=== PATIENT | female | born 1945 | race Caucasian/White ===

== ENCOUNTER 2017-01-11 10:38 | Emergency (ER) | payer BC, MEDICARE ==
[2017-01-11 10:56] VITALS: BP 133/69
--- NOTE | 2017-01-11 11:27 | UC ---
Skin Complaint HPI - HPI Summary HPI Summary: Started getting itchy bumps under her chin 5 days ago, each day new bumps have cropped up on L chest, L shoulder, under R breast. Very itchy. Has not been moving or weeding, but did plant a new peony prior to rash. - History of Current Complaint Chief Complaint: UCSkin Time Seen by Provider: 01/11/17 10:53 Stated Complaint: RASH Hx Obtained From: Patient ?: No Onset/Duration: Gradual Onset, Lasting Days Skin Exposure Onset/Duration: Days Ago Timing: Constant Onset Severity: Mild Current Severity: Moderate Location: Face Character: Pruritus, Redness, Raised Aggravating: Touch Alleviating: Nothing Associated Signs & Symptoms: Positive: Rash - Allergy/Home Medications Allergies/Adverse Reactions: Allergies Allergy/AdvReac Type Severity Reaction Status Date / Time Morphine AdvReac Unknown Vomiting Verified 09/14/15 14:36 Sulfa Drugs AdvReac Unknown Unknown Verified 02/11/14 15:32 Reaction Details Review of Systems Constitutional: Negative Skin: Rash Eyes: Negative ENT: Negative Respiratory: Negative Cardiovascular: Negative Gastrointestinal: Negative Genitourinary: Negative Motor: Negative Neurovascular: Negative Musculoskeletal: Negative Neurological: Negative Psychological: Negative All Other Systems Reviewed And Are Negative: Yes PMH/Surg Hx/FS Hx/Imm Hx Cardiovascular History: Cardiac Disease, Hypertension, Myocardial Infarction Other History Of: Negative For: Anticoagulant Therapy - Surgical History Surgical History: Yes Surgery Procedure, Year, and Place: [place] [facility] [place]. [place] [facility] [place] ankle FX+repair. 1961 tonsils. dental surgeries cardiac surgeries - Family History Known Family History: Positive: Hypertension - Social History Occupation: Retired Alcohol Use: Daily Alcohol Amount: 1 glass of wine Substance Use Type: None Smoking Status (MU): Former Smoker Type: Cigarettes Amount Used/How Often: 1 or 2 cigarettes/day Have You Smoked in the Last Year: No - Immunization History Most Recent Influenza Vaccination: 05/17 Most Recent Tetanus Shot: within last 10 years Most Recent Pneumonia Vaccination: 2008 Physical Exam Triage Information Reviewed: Yes Appearance: Well-Appearing, No Pain Distress, Well-Nourished Vital Signs: Initial Vital Signs Temp 98 F 01/11/17 10:54 Pulse 75 01/11/17 10:54 Resp 20 01/11/17 10:54 BP 133/69 01/11/17 10:54 Pulse Ox 100 01/11/17 10:54 Vital Signs Reviewed: Yes Eye Exam: Normal Eyes: Positive: Conjunctiva Clear ENT: Positive: Pharynx normal. Negative: Nasal congestion, Nasal drainage, Tonsillar swelling, Tonsillar exudate Dental Exam: Normal Neck exam: Normal Neck: Positive: Supple, Nontender, No Lymphadenopathy Respiratory Exam: Normal Respiratory: Positive: Chest non-tender, Lungs clear, Normal breath sounds, No respiratory distress, No accessory muscle use Cardiovascular Exam: Normal Cardiovascular: Positive: RRR, No Murmur Musculoskeletal Exam: Normal Neurological Exam: Normal Neurological: Positive: Alert Psychological Exam: Normal Skin Exam: Other - irreg raised red bumps on R chest, under chin, under L breast , some weeping Course/Dx - Diagnoses Provider Diagnoses: contact dermatitis Discharge - Discharge Plan Condition: Stable Disposition: HOME Prescriptions: Triamcinolone 0.5% CREAM(NF) [Triamcinolone 0.5% CREAM*] 1 applic TOPICAL TID # 30 gm predniSONE TAB* [Deltasone TAB*] 40 mg PO DAILY #4 tab Patient Education Materials: Contact Dermatitis (ED) Referrals: Tri Taveras MD [Primary Care Provider] - Additional Instructions: Use the topical cream 3 times per day for up to 14 days in a row. if you do not have marked improvement within 4 days, you should take the oral medicine in addition to the cream.
== END 2017-01-11 11:25 | disposition home or self-care (01) ==
LOC: UCEAST 10:38
DX: L25.9 Unspecified contact dermatitis, unspecified cause (principal); I25.2 Old myocardial infarction; I10 Essential (primary) hypertension; Z88.5 Allergy status to narcotic agent; Z88.2 Allergy status to sulfonamides; Z87.891 Personal history of nicotine dependence
CPT/HCPCS: 99212; G0463

== ENCOUNTER 2017-08-07 12:04 | Emergency (ER) | payer BC ==
--- NOTE | 2017-08-07 13:07 | RAD ---
INDICATION: Chest pain. History of VA. History of thoracic aneurysm with endovascular stent graft COMPARISON: Chest x-ray 2015; external CTA chest August 31, 2015 TECHNIQUE: An AP portable view obtained at 1235 hours is submitted. FINDINGS: Bones/Soft Tissues: There is sternotomy. There is interval endovascular thoracic aortic stent placement. Cardiomediastinal: There is an abnormal cardiac silhouette with an abnormal thoracic aortic contour which appears more prominent. There has been interval endovascular stent graft placement. Given the changes, however, consider CT angiographic evaluation. Lungs: There are no infiltrates. Pleura: There are no pleural effusions. Other: None IMPRESSION: THORACIC ANEURYSM . THERE IS BEEN AN INCREASE IN SIZE OF THE [place] THORACIC AORTA WHICH HAS UNDERGONE INTERVAL ENDOVASCULAR STENT PLACEMENT. CONSIDER CT ANGIOGRAPHY.
[2017-08-07 13:21] LABS: INR 1.1 (0.77-1.02)
[2017-08-07 13:29] LABS: EGFR Non-African American 98.3 (>60)
[2017-08-07 13:43] LABS: Hematocrit 35 % (35-47); Hemoglobin 11.4 g/dl (12.0-16.0); Mean Corpuscular HGB Conc 33 g/dl (31-36); Mean Corpuscular Hemoglobin 25 pg (27-31); Mean Corpuscular Volume 78 fL (80-97); Red Blood Count 4.53 10^6/ul (4.0-5.4); Red Cell Distribution Width 16 % (10.5-15); White Blood Count 9.2 10^3/ul (3.5-10.8)
[2017-08-07 14:18] LABS: ABS Basophils 0 10^3/ul (0-0.2); ABS Eosinophils 0.2 10^3/ul (0-0.6); ABS Lymphocytes 1.2 10^3/ul (1.0-4.8); ABS Monocytes 0.7 10^3/ul (0-0.8); ABS Neutrophils 7.1 10^3/ul (1.5-7.7); ABS Nucleated RBC 0 10^3/ul; Eosinophil % 1.9 % (0-6); Lymphocyte % 12.8 % (25-47); Mean Platelet Volume 9 um3 (7.4-10.4); Nucleated Red Blood Cells % 0.1; Platelet Count 190 10^3/ul (150-450)
[2017-08-07] MEDS ORDERED: Iohexol 350* (CONTRAST) 500 ML MDV IV ONE (14:29)
--- NOTE | 2017-08-07 15:46 | RAD ---
INDICATION: Thoracoabdominal aneurysm. Endovascular stent repair of thoracic aorta. Tube graft placement aortic root COMPARISON: Preoperative CT examination to 2015 TECHNIQUE: Axial source images were obtained from the thoracic inlet to the symphysis pubis following administration of intravenous contrast. 98 mL Omnipaque [address] angiographic technique was utilized with and sagittal reconstructions. 3-D 5 rendered images were obtained. CHEST FINDINGS: Neck/thyroid: The visualized neck to include the thyroid appear normal. Chest wall: There are no acute abnormalities of the bony thorax or chest wall. There is sternotomy There is no supraclavicular, infraclavicular, or axillary lymphadenopathy. Lungs : There are no pulmonary parenchymal masses or infiltrates. The pulmonary interstitium appears normal. There are no endobronchial lesions. Cardiomediastinal structures: There is interval placement of a tube graft at the level of the aortic root which is now normal in caliber. There is interval placement of endovascular stent graft which extends from the tube graft to the proximal descending thoracic aorta. At the level the arch the endovascular graft measures a maximum of 3.6 cm which is similar in size to the [place] aorta. 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 At the level of the distal most extent of the endovascular stent graft the aorta measures 7.6 x 7.2 cm whereas formerly at this level the aorta measured approximately 5.9 x 5.8 cm. Below the level of the stent graft the aorta has maximum transverse dimensions of 7.5 x 7.2 cm (formerly 5.4 x 5.2 cm). At this level there is significant circumferential thrombus. The actual lumen diameter is 4.5 cm. There is no mediastinal adenopathy. The heart is increased in size. Pleura : There are no pleural-based masses or effusions. ABDOMINAL/PELVIC FINDINGS: Liver: The liver is normal in size. There are no masses on early arterial phase enhancement. There is no ductal dilatation. Gallbladder: There are no calcified gallstones. There is no evidence of wall thickening or pericholecystic fluid. Spleen: The spleen is normal in size. There are no masses. Pancreas: There is no evidence of pancreatic mass or ductal dilatation. Adrenal glands: There is no evidence of adrenal mass. Kidneys: The kidneys are normal in size and position. There are prompt nephrograms and there is prompt excretion bilaterally. There are no renal parenchymal masses. There is no evidence of nephrolithiasis. Adenopathy: There is no evidence of adenopathy by size criteria. Fluid collections: There are no free or localized fluid collections. Vessels: The fusiform aneurysmal dilatation of the abdominal aorta extends through the diaphragmatic hiatus with the vessel is very tortuous. At the hiatus the aortic diameter is approximately 3.1 x 3.5 cm. At the level the renal arteries the aorta measures 4.9 x 3.8 cm and is associated with moderate circumferential thrombus. The remainder the aorta is diffusely ectatic measuring approximately 3 cm down to level the bifurcation. These latter measurements are similar to the earlier external examination. The visceral branches arise satisfactorily with the exception of the inferior mesenteric artery which is not identified with certainty. The iliac vessels are mildly ectatic and tortuous but not aneurysmal. GI tract: Noncontrast imaging demonstrates no acute findings. Pelvic organs: The uterus and adnexa appear normal Bladder: There are no bladder masses. Abdominal and pelvic soft tissues: The extraperitoneal abdominal and pelvic soft tissues appear normal.. Osseous structures: There are no acute osseous findings. IMPRESSION: THERE IS BEEN INTERVAL CARDIOTHORACIC SURGERY WITH PLACEMENT OF A TUBE GRAFT AT THE LEVEL THE AORTIC ROOT AND THERE IS ALSO BEEN PLACEMENT OF ENDOVASCULAR STENT GRAFT IN THE PROXIMAL THORACIC AORTA DESCRIBED. THERE HAS BEEN AN OVERALL INCREASE IN THE SIZE OF THE [place] ANEURYSM WHICH HAS NOT UNDERGONE SURGICAL OR ENDOVASCULAR REPAIR AND THIS CHANGE ACCOUNTS FOR CURRENT CHEST X-RAY FINDINGS. THE SIGNIFICANCE OF THESE LATTER CHANGES MUST BE VIEWED IN THE CONTEXT OF THE CT APPEARANCE POST GRAFT AND AND ENDOVASCULAR STENT PLACEMENT. THEREFORE THIS EXAMINATION SHOULD BE CORRELATED WITH ANY MORE RECENT EXTERNAL CT EXAMINATIONS.
[2017-08-07 16:35] LABS: Urine Appearance Clear; Urine Blood Negative (Negative); Urine Color Straw; Urine Ketones Negative (Negative); Urine Protein Negative (Negative); Urine Specific Gravity 1.059 (1.010-1.030); Urine Urobilinogen Negative (Negative)
[2017-08-07 17:02] VITALS: BP 134/73
--- NOTE | 2017-08-07 17:25 | CONSULT ---
Subjective Date of Service: 08/07/17 Interval History: Patient c/o sharp pains across her chest, radiating to both arms, lasting about 1 minute and occurring 3-4 times per hour for the past 3 days. They are worse today. She pushed a heavy object about 7 days ago. No SOB, cough. She took some ranitidine and acetaminophen. She gets some chest burnign "heartburn" with the pain. Review of Systems - Measurements Intake and Output: Intake and Output Last 24 Hours 08/05/17 08/06/17 08/07/17 08/08/17 06:59 06:59 06:59 06:59 Weight 150 lb Objective Vital Signs - 8 hr 08/07/17 08/07/17 08/07/17 12:09 13:29 13:30 Temperature 99 F Pulse Rate 69 63 60 Respiratory 18 Rate Blood Pressure 158/86 129/72 (mmHg) O2 Sat by Pulse 99 96 97 Oximetry 08/07/17 08/07/17 08/07/17 14:00 14:30 16:22 Temperature Pulse Rate 62 63 Respiratory 20 20 16 Rate Blood Pressure 126/59 134/73 (mmHg) O2 Sat by Pulse 93 94 Oximetry 08/07/17 17:00 Temperature Pulse Rate 67 Respiratory 21 Rate Blood Pressure (mmHg) O2 Sat by Pulse 96 Oximetry Oxygen Devices in Use Now: None Appearance: Alert, sitting up in bed. Somewhat anxious, otherwise looks comfortable. Eyes: No Scleral Icterus Neck: NL Appearance and Movements; NL JVP, No Thyroid Enlargement, Masses Respiratory: Symmetrical Chest Expansion and Respiratory Effort, Clear to Auscultation, Clear to Percussion Cardiovascular: RRR, No Edema, - - 3-4/6 systolic murmur RSB. Abdominal: NL Sounds; No Tenderness; No Distention, No Hepatosplenomegaly, - Extremities: No Edema, No Clubbing, Cyanosis, - Skin: No Rash or Ulcers, No Nodules or Sclerosis, - Neurological: Alert and Oriented x 3, NL Sensation Result Diagrams: 08/07/17 12:50 08/07/17 12:50 Assessment/Plan - Billing Plan By Medical Problem: 1. Chest pain: This is a very complicated patient with prosthetic AV, tube graft to the aorta, endovascular stent graft to the aorta. Not clear if her pain is related to the grafts and/or her aneurysm. She would best be served by transfer to [facility] where she has been before for aortic/cardiac problems and where there are experienced thoracic sugeons available for consultation and treatment.
--- NOTE | 2017-08-07 18:14 | ED ---
Guido Mitchell Angela, scribed for Chandana Wood MD on 08/07/17 at 1248 . HPI Chest Pain - HPI Summary HPI Summary: This pt is a 71 y/o female presenting to [facility] c/o chest pain x3 days. Pt reports her pain comes in waves and radiates to bilateral arms. She rates her pain 3-4 out of 10 in severity and is described as sharp. Denies cough, SOB, nausea or vomiting. PMHx: cardiac stent, aortic aneurysms x2. Her second surgery for an aneurysm was approximately 1 year ago at [facility]. Pt is on baby aspirin. The first surgery for her aneurysm was done by Dr. Collin Canales, who is a cardiothoracic surgeon at [facility]. - History of Current Complaint Chief Complaint: EDChestPainROMI Time Seen by Provider: 08/07/17 12:24 Hx Obtained From: Patient Onset/Duration: Started Days Ago, Still Present Timing: Lasting Days Current Severity: Moderate Pain Intensity: 4 Pain Scale Used: 0-10 Numeric Chest Pain Location: Diffuse Chest Pain Radiates: No Character: Sharp/Stabbing - sharp Aggravating Factor(s): Nothing Alleviating Factor(s): Nothing Associated Signs and Symptoms: Positive: Chest Pain. Negative: Shortness of Breath, Nausea, Cough, Vomiting - Additional Pertinent History Primary Care Physician: [id number] - Allergy/Home Medications Allergies/Adverse Reactions: Allergies Allergy/AdvReac Type Severity Reaction Status Date / Time MS Morphine [Morphine] AdvReac Unknown Vomiting Verified 09/14/15 14:36 MS Sulfa Drugs [Sulfa Drugs] AdvReac Unknown Unknown Verified 02/11/14 15:32 Reaction Details Home Medications: Home Medications Aspirin EC Low Dose* [Ecotrin EC Low Dose 81 MG*] 81 mg PO DAILY 08/07/17 [ History Confirmed 08/07/17] Metoprolol Tartrate TAB* [Lopressor TAB*] 37.5 mg PO QPM 08/07/17 [History Confirmed 08/07/17] PMH/Surg Hx/FS Hx/Imm Hx Endocrine/Hematology History: Denies: Hx Anticoagulant Therapy, Hx Blood Disorders, Hx Blood Transfusions, Hx Bone Marrow Disease, Hx Diabetes, Hx Systemic Lupus Erythematosus, Hx Sickle Cell Disease, Hx Thyroid Disease, Hx Anemia, Hx Unexplained Bleeding, Other Endocrine/Hematological Disorders Cardiovascular History: Reports: 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 , Hx Angina, Hx Coronary Artery Disease, Hx Hypercholesterolemia, Hx Hypertension - on meds, Other Cardiovascular Problems/Disorders - Aortic valve replacement (pig valve) Denies: Hx Angioplasty, Hx Auto Implanted Cardiovert Defib, Hx Cardiac Arrest , Hx Cardiomegaly, Hx Congenital Heart Disease, Hx Congestive Heart Failure, Hx Deep Vein Thrombosis, Hx Embolism, Hx Hypotension, Hx Pacemaker/ICD, Hx Peripheral Vascular Disease, Hx Rheumatic Fever, Hx Syncope, Hx Valvular Heart Disease Respiratory History: Reports: Hx Seasonal Allergies - current CPAP user, Hx Sleep Apnea - current BiPAP user, Other Respiratory Problems/Disorders - sleep apnea cpap Denies: Hx Asthma, Hx Chronic Bronchitis, Hx Chronic Obstructive Pulmonary Disease (COPD), Hx Cystic Fibrosis, Hx Lung Cancer, Hx Pleural Effusion, Hx Pneumonia, Hx Pulmonary Edema, Hx Pulmonary Embolism GI History: Denies: Hx Cirrhosis, Hx Crohn's Disease, Hx Diverticulosis, Hx Gall Bladder Disease, Hx Gastroesophageal Reflux Disease, Hx Gastrointestinal Bleed, Hx Hiatal Hernia, Hx Irritable Bowel, Hx Jaundice, Hx Obstructive Bowel, Hx Ileostomy, Hx Pyloric Stenosis, Hx Ulcer, Other GI Disorders History: Denies: Hx Acute Renal Failure, Hx Benign Prostatic Hyperplasia, Hx Chronic Renal Failure, Hx Dialysis, Hx Kidney Infection, Hx Kidney Stones, Other Problems/Disorders Musculoskeletal History: Denies: Hx Arthritis, Hx Back Problems, Hx Bursitis, Hx Congenital Bone Abnormalities, Hx Fibromyalgia, Hx Gout, Hx Orthopedic Injury, Hx Osteoporosis, Hx Scoliosis, Hx Tendonitis, Other Musculoskeletal History Sensory History: Reports: Hx Contacts or Glasses, Hx Vision Problem, Hx Hearing Aid, Hx Hearing Problem Denies: Hx Cataracts, Hx Eye Injury, Hx Eye Prosthesis, Hx Glaucoma, Hx Legally Blind, Hx Macular Degeneration, Hx Deafness, Other Sensory Impairments Opthamlomology History: Reports: Hx Contacts or Glasses, Hx Vision Problem Denies: Hx Cataracts, Hx Eye Injury, Hx Eye Prosthesis, Hx Glaucoma, Hx Legally Blind, Hx Macular Degeneration, Other Sensory Impairments Neurological History: Reports: Hx Headaches, Hx Migraine Denies: Hx Dementia, Hx Developmental Delay, Hx Nerve Disease, Hx Seizures, Hx Spinal Cord Injury, Hx Transient Ischemic Attacks (TIA), Other Neuro Impairments/Disorders Psychiatric History: Reports: Hx Anxiety Denies: Hx Attention Deficit Hyperactivity Disorder, Hx Eating Disorder, Hx Depression, Hx Panic Disorder, Hx Post Traumatic Stress Disorder, Hx Inpatient Treatment, Hx Community Mental Health Tx, Hx Schizophrenia, Hx Bipolar Disorder , Hx Suicide Attempt, Hx of Violent Episodes Against Others, Hx Substance Abuse , Other Psychiatric Issues/Disorders - Surgical History Surgery Procedure, Year, and [place] [facility] [place]. [place] [facility] [place]. 1961 tonsils. dental surgeries cardiac surgeries Hx Anesthesia Reactions: No Infectious Disease History: No Infectious Disease History: Denies: Hx Clostridium Difficile, Hx Hepatitis - Hepatitis as a child, Hx Human Immunodeficiency Virus (HIV), Hx of Known/Suspected MRSA, Hx Shingles, Hx Tuberculosis, Hx Known/Suspected VRE, Hx Known/Suspected VRSA, History Other Infectious Disease, Traveled Outside the [place] in Last 30 Days - Family History Known Family History: Positive: Hypertension - Social History Alcohol Use: Daily Alcohol Amount: 1 glass of wine Substance Use Type: Reports: None Smoking Status (MU): Former Smoker Type: Cigarettes Amount Used/How Often: 1 or 2 cigarettes/day Have You Smoked in the Last Year: No Review of Systems Negative: Fever, Chills Eyes: Negative Positive: Chest Pain Negative: Shortness Of Breath, Cough Negative: Vomiting, Nausea All Other Systems Reviewed And Are Negative: Yes Physical Exam - Summary Physical Exam Summary: VITAL SIGNS: Reviewed. GENERAL: Patient is a well-developed and nourished female who is lying comfortable in the stretcher. Patient is not in any acute respiratory distress. HEAD AND FACE: No signs of trauma. No ecchymosis, hematomas or skull depressions. No sinus tenderness. EYES: PERRLA, EOMI x 2, No injected conjunctiva, no nystagmus. EARS: Hearing grossly intact. Ear canals and tympanic membranes are within normal limits. MOUTH: Oropharynx within normal limits. NECK: Supple, trachea is midline, no adenopathy, no JVD, no carotid bruit, no c- spine tenderness, neck with full ROM. CHEST: Symmetric, no tenderness at palpation LUNGS: Clear to auscultation bilaterally. No wheezing or crackles. CVS: Regular rate and rhythm, S1 and S2 present, no murmurs or gallops appreciated. ABDOMEN: Soft, non-tender. No signs of distention. No rebound no guarding, and no masses palpated. Bowel sounds are normal. EXTREMITIES: FROM in all major joints, no edema, no cyanosis or clubbing. NEURO: Alert and oriented x 3. No acute neurological deficits. Speech is normal and follows commands. SKIN: Dry and warm Triage Information Reviewed: Yes Vital Signs On Initial Exam: Initial Vitals Temp Pulse Resp BP Pulse Ox 99 F 69 18 158/86 99 08/07/17 12:09 08/07/17 12:09 08/07/17 12:09 08/07/17 12:09 08/07/17 12:09 Vital Signs Reviewed: Yes Diagnostics - Vital Signs Vital Signs Temp Pulse Resp BP Pulse Ox 08/07/17 12:09 99 F 69 18 158/86 99 - Laboratory Lab Results: Lab Results 08/07/17 08/07/17 08/07/17 Range/Units 12:50 12:50 12:50 WBC (3.5-10.8) 10^3/ul RBC (4.0-5.4) 10^6/ul Hgb (12.0-16.0) g/dl Hct (35-47) % MCV (80-97) fL MCH (27-31) pg MCHC (31-36) g/dl RDW (10.5-15) % Plt Count (150-450) 10^3/ul MPV (7.4-10.4) um3 Neut % (Auto) (38-83) % Lymph % (Auto) (25-47) % Eagle % (Auto) (1-9) % Eos % (Auto) (0-6) % Baso % (Auto) (0-2) % Absolute Neuts (auto) (1.5-7.7) 10^3/ul Absolute Lymphs (auto) (1.0-4.8) 10^3/ul Absolute Monos (auto) (0-0.8) 10^3/ul Absolute Eos (auto) (0-0.6) 10^3/ul Absolute Basos (auto) (0-0.2) 10^3/ul Absolute Nucleated RBC 10^3/ul Nucleated RBC % INR (Anticoag Therapy) 1.10 H (0.77-1.02) APTT 26.4 (26.0-36.3) seconds Sodium 137 (133-145) mmol/L Potassium 3.9 (3.5-5.0) mmol/L Chloride 104 (101-111) mmol/L Carbon Dioxide 25 (22-32) mmol/L Anion Gap 8 (2-11) mmol/L BUN 17 (6-24) mg/dL Creatinine 0.60 (0.51-0.95) mg/dL Est GFR ( Amer) 126.4 (>60) Est GFR (Non-Af Amer) 98.3 (>60) BUN/Creatinine Ratio 28.3 H (8-20) Glucose 101 H (70-100) mg/dL Calcium 9.4 (8.6-10.3) mg/dL Magnesium 2.0 (1.9-2.7) mg/dL Total Bilirubin 0.60 (0.2-1.0) mg/dL AST 18 (13-39) U/L ALT 12 (7-52) U/L Alkaline Phosphatase 89 (34-104) U/L Total Creatine Kinase 41 (10-223) U/L CK-MB (CK-2) 0.7 (0.6-6.3) ng/mL Troponin I 0.01 (<0.04) ng/mL B-Natriuretic Peptide 314 H ( - 100) pg/mL Total Protein 6.8 (6.4-8.9) g/dL Albumin 4.0 (3.2-5.2) g/dL Globulin 2.8 (2-4) g/dL Albumin/Globulin Ratio 1.4 (1-3) TSH 1.35 (0.34-5.60) mcIU/mL Urine Color Urine Appearance Urine pH (5-9) Ur Specific [place] (1.010-1.030) Urine Protein (Negative) Urine Ketones (Negative) Urine Blood (Negative) Urine Nitrate (Negative) Urine Bilirubin (Negative) Urine Urobilinogen (Negative) Ur Leukocyte Esterase (Negative) Urine Glucose (Negative) 08/07/17 08/07/17 08/07/17 Range/Units 12:50 15:29 16:21 WBC 9.2 (3.5-10.8) 10^3/ul RBC 4.53 (4.0-5.4) 10^6/ul Hgb 11.4 L (12.0-16.0) g/dl Hct 35 (35-47) % MCV 78 L (80-97) fL MCH 25 L (27-31) pg MCHC 33 (31-36) g/dl RDW 16 H (10.5-15) % Plt Count 190 (150-450) 10^3/ul MPV 9 (7.4-10.4) um3 Neut % (Auto) 77.1 (38-83) % Lymph % (Auto) 12.8 L (25-47) % Eagle % (Auto) 7.7 (1-9) % Eos % (Auto) 1.9 (0-6) % Baso % (Auto) 0.5 (0-2) % Absolute Neuts (auto) 7.1 (1.5-7.7) 10^3/ul Absolute Lymphs (auto) 1.2 (1.0-4.8) 10^3/ul Absolute Monos (auto) 0.7 (0-0.8) 10^3/ul Absolute Eos (auto) 0.2 (0-0.6) 10^3/ul Absolute Basos (auto) 0 (0-0.2) 10^3/ul Absolute Nucleated RBC 0 10^3/ul Nucleated RBC % 0.1 INR (Anticoag Therapy) (0.77-1.02) APTT (26.0-36.3) seconds Sodium (133-145) mmol/L Potassium (3.5-5.0) mmol/L Chloride (101-111) mmol/L Carbon Dioxide (22-32) mmol/L Anion Gap (2-11) mmol/L BUN (6-24) mg/dL Creatinine (0.51-0.95) mg/dL Est GFR ( Amer) (>60) Est GFR (Non-Af Amer) (>60) BUN/Creatinine Ratio (8-20) Glucose (70-100) mg/dL Calcium (8.6-10.3) mg/dL Magnesium (1.9-2.7) mg/dL Total Bilirubin (0.2-1.0) mg/dL AST (13-39) U/L ALT (7-52) U/L Alkaline Phosphatase (34-104) U/L Total Creatine Kinase (10-223) U/L CK-MB (CK-2) (0.6-6.3) ng/mL Troponin I 0.01 (<0.04) ng/mL B-Natriuretic Peptide ( - 100) pg/mL Total Protein (6.4-8.9) g/dL Albumin (3.2-5.2) g/dL Globulin (2-4) g/dL Albumin/Globulin Ratio (1-3) TSH (0.34-5.60) mcIU/mL Urine Color Straw Urine Appearance Clear Urine pH 7.0 (5-9) Ur Specific [place] 1.059 H (1.010-1.030) Urine Protein Negative (Negative) Urine Ketones Negative (Negative) Urine Blood Negative (Negative) Urine Nitrate Negative (Negative) Urine Bilirubin Negative (Negative) Urine Urobilinogen Negative (Negative) Ur Leukocyte Esterase Negative (Negative) Urine Glucose Negative (Negative) Result Diagrams: 08/07/17 12:50 08/07/17 12:50 Lab Statement: Any lab studies that have been ordered have been reviewed, and results considered in the medical decision making process. - Radiology Chest XR Xray Interpretation: Positive (See Comments) - IMPRESSION: Thoracic aneurysm. There is been an increase in size of the [place] thoracic aorta which has undergone interval endovascular stent placement. Consider CT angiography. Dr. Wood has reviewed this radiology report. Radiology Interpretation Completed By: Radiologist - CT CT chest/abdomen/pelvis CT Interpretation: Positive (See Comments) - IMPRESSION: THERE IS BEEN INTERVAL CARDIOTHORACIC SURGERY WITH PLACEMENT OF A TUBE GRAFT AT THE LEVEL THE AORTIC ROOT AND THERE IS ALSO BEEN PLACEMENT OF ENDOVASCULAR STENT GRAFT IN THE PROXIMAL THORACIC AORTA DESCRIBED. THERE HAS BEEN AN OVERALL INCREASE IN THE SIZE OF THE CONFEDERATED [place] ANEURYSM WHICH HAS NOT UNDERGONE SURGICAL OR ENDOVASCULAR REPAIR AND THIS CHANGE ACCOUNTS FOR CURRENT CHEST X-RAY FINDINGS. THE SIGNIFICANCE OF THESE LATTER CHANGES MUST BE VIEWED IN THE CONTEXT OF THE CT APPEARANCE POST GRAFT AND ENDOVASCULAR STENT PLACEMENT. THEREFORE THIS EXAMINATION SHOULD BE CORRELATED WITH ANY MORE RECENT EXTERNAL CT EXAMINATIONS. Dr. Wood has reviewed this radiology report. CT Interpretation Completed By: Radiologist - EKG 12:13 Cardiac Rate: NL EKG Rhythm: Sinus Rhythm - at 65 bpm EKG Interpretation: T wave inversion in V1, V2. ST depressionin V4-V6. EKG Comparison: Other - different from prior EKG on 10/19/15. Re-Evaluation - Re-Evaluation First Eval Re-Evaluation Time: 16:03 Comment: I reviewed the labs, XR and CTA results with the pt. I discussed the plan to admit with the pt. Second Eval Re-Evaluation Time: 17:10 Comment: Dr. Han does not feel comfortable admitting the pt because the pain may be secondary to aortic in origin. He recommends for the pt to be transferred to [facility] for cardiothoracic surgery, which is where the pt' s surgeon, Dr. Collin Canales, is located. Chest Pain Course/Dx - Course Assessment/Plan: Test results without any significant abnormalities, hemoglobin of 11.4, BNP of 314. Urinalysis is negative for UTI. Chest XR: Thoracic aneurysm. There is been an increase in size of the [place] thoracic aorta which has undergone interval endovascular stent placement. Consider CT angiography. Chest/abdomen/pelvis CTA shows THERE IS BEEN INTERVAL CARDIOTHORACIC SURGERY WITH PLACEMENT OF A TUBE GRAFT AT THE LEVEL THE AORTIC ROOT AND THERE IS ALSO BEEN PLACEMENT OF ENDOVASCULAR STENT GRAFT IN THE PROXIMAL THORACIC AORTA DESCRIBED. THERE HAS BEEN AN OVERALL INCREASE IN THE SIZE OF THE CONF[place] ANEURYSM WHICH HAS NOT UNDERGONE SURGICAL OR ENDOVASCULAR REPAIR AND THIS CHANGE ACCOUNTS FOR CURRENT CHEST X-RAY FINDINGS. THE SIGNIFICANCE OF THESE LATTER CHANGES MUST BE VIEWED IN THE CONTEXT OF THE CT APPEARANCE POST GRAFT AND ENDOVASCULAR STENT PLACEMENT. THEREFORE THIS EXAMINATION SHOULD BE CORRELATED WITH ANY MORE RECENT EXTERNAL CT EXAMINATIONS. In the ED course the pt has been stable with no significant pain. However, the EKG is abnormal and has flipped T waves and ST depression in V4-V6. I discussed the case with Dr. Han, hospitalist, who did a consult on the pt. He recommends the pt to be transferred to a hospital that has a cardiothoracic surgeon for an increased size of [place] aneurysm which has not undergone surgical or endovascular repair. I spoke with Dr. Martinez, from [facility], who reports the pt should be transferred to a higher level of care due to the last 2 interventions. I discussed with the transfer center at [facility] and they auto accepted the pt under Dr. Wilder, and the pt is going to [facility]. Pt continues to be hemodynamically stable, therefore she will be transferred via ACLS to [facility] for further work up and management. - Chest Pain Differential Diagnosis/HQI/PQRI: Acute AR, ACS, Angina, Aortic Aneurysm, CHF, Chest Wall, GI Disease, Lower Respiratory Infection - Diagnoses Provider Diagnoses: Chest pain, Status post thoracic surgery - Provider Notifications Discussed Care Of Patient With: Vaibhav Han Time Discussed With Above Provider: 16:02 Instructed by Provider To: Other - I discussed pt's case with Dr. Han, hospitalist, who has agreed to admit the pt. [17:15] I spoke with Dr. Martinez, from [facility], who reports the pt should be transferred to a higher level of care due to the last 2 interventions. [18:01] I spoke with the transfer center at [facility], who accepted the pt for transfer under Dr. Wilder. - Critical Care Time Critical Care Time: 75-104 min Discharge - Discharge Plan Condition: Stable Disposition: TRANS HIGHER LVL OF CARE FAC Discharge Disposition Comment: [place] [facility] Referrals: Tri Taveras MD [Primary Care Provider] - The documentation as recorded by the Guido mendiola Angela accurately reflects the service I personally performed and the decisions made by me, Chandana Wood MD.
== END 2017-08-07 18:35 | disposition short-term general hospital (02) ==
LOC: ED 12:04 → MEDTELE 16:20 → UNDOADMOB 16:20 → ED 18:35
DX: R07.9 Chest pain, unspecified (principal); Z79.82 Long term (current) use of aspirin; I25.10 Atherosclerotic heart disease of native coronary artery without angina pectoris; E78.00 Pure hypercholesterolemia, unspecified; Z95.2 Presence of prosthetic heart valve; Z88.5 Allergy status to narcotic agent; Z88.2 Allergy status to sulfonamides; I10 Essential (primary) hypertension; Z87.891 Personal history of nicotine dependence; I71.2 Thoracic aortic aneurysm, without rupture; Z98.890 Other specified postprocedural states
CPT/HCPCS: 36415; 71045; 71275; 74174; 80053; 81003; 82550; 82553; 83735; 83880; 84443; 84484; 85025; 85610; 85730; 93005; 96374; 99283; Q9967

== ENCOUNTER 2017-11-24 20:31 | Inpatient (IN) | payer BC ==
[2017-11-24 21:56] LABS: Hematocrit 27 % (35-47); Hemoglobin 8.7 g/dl (12.0-16.0); Mean Corpuscular HGB Conc 32 g/dl (31-36); Mean Corpuscular Hemoglobin 23 pg (27-31); Mean Corpuscular Volume 73 fL (80-97); Mean Platelet Volume 8.3 um3 (7.4-10.4); Platelet Count 220 10^3/ul (150-450); Red Blood Count 3.74 10^6/ul (4.0-5.4); Red Cell Distribution Width 19 % (10.5-15); White Blood Count 6.5 10^3/ul (3.5-10.8)
[2017-11-24 21:57] LABS: INR 1.11 (0.77-1.02)
[2017-11-24 22:02] LABS: ABS Basophils 0.1 10^3/ul (0-0.2); ABS Eosinophils 0.2 10^3/ul (0-0.6); ABS Lymphocytes 1.1 10^3/ul (1.0-4.8); ABS Monocytes 0.5 10^3/ul (0-0.8); ABS Neutrophils 4.6 10^3/ul (1.5-7.7)
[2017-11-24 22:03] LABS: EGFR Non-African American 61.5 (>60)
[2017-11-24 22:19] LABS: ABS Nucleated RBC 0 10^3/ul; Eosinophil % 2.4 % (0-6); Lymphocyte % 17.1 % (25-47); Nucleated Red Blood Cells % 0; Schistocytes 1+
[2017-11-24] MEDS ORDERED: Piperacillin/Tazobac ADVAN(*) 3.375 GM in NS 0.9% 100 ML* 100 ML IVPB ONE (23:04)
--- NOTE | 2017-11-25 02:55 | HP ---
H&P (Free Text) History and Physical: History and Physical Date of Admission: 11/25/17 Admitting Provider: Dr. Arriaga Primary Care Provider: Dr. Taveras CC: Recent fall, head injury HPI: This is a 71 year old female with past medical history significant for CAD , MO, aortic aneurysm s/p stent placement, and recent cholecystectomy, who presented to the [facility] [place] ED for evaluation of injuries on 11/24/17 after falling on 11/23/17. She reports generalized weakness following recent aortic aneurysm stenting and gallbladder surgery. She was in rehab for a while and has since been discharged home. She typically uses a walker or cane while at home but she was outside on evening without these devices. She went to step onto her porch and felt her legs give out, resulting in her falling backward to the ground. She reports no loss of consciousness. She was feeling well prior to the fall and denied lightheadedness or dizziness. She sustained injury to the left side of her face and orbit. She states that she was on the ground for several minutes yelling for help until she was finally able to crawl back to her house and inside to the phone. She called a neighbor who came over to help. She was experiencing facial pain and headache at this time but did not want to go to the ED. So she took 2 oxycodone from her post-operative prescription and fell asleep. She slept well overnight. In the morning, she took two tylenol and this afternoon two ibuprofen. Her friends came over this afternoon and convinced her to present to the ED for evaluation. Currently, she complains of mild periorbital pain and left frontal headache. She also reports blurred vision in the left eye and swelling resulting in difficulty opening the eye. Per patient, vision is slightly improved since onset at time of fall. She denies fever, sweats, neck pain, chest pain, difficulty breathing, shortness of breath, nausea, vomiting, dizziness, lightheadedness, changes in speech, memory loss, difficulty swallowing or drinking, abdominal pain or pressure, diarrhea, painful urination, blood in stool or urine, incontinence, gait instability, poor coordination and numbness or pain in the lower extremities. For the past few months since the two most recent surgeries, she reports bilateral pedal edema and intermittent nausea, chills, bloating, and numbness of the right hand fingers. Past Medical History: 1. Myocardial infarction 2013 2. Aortic aneurysm 3. Hyperlipidemia 4. Hypertension 5. Diverticulosis 6. Fuchs disease 7. Chronic ischemic heart disease Past Surgical History: 1. Cardiac cath for MO 2013- [facility] [place] 2. Open heart surgery for valve replacement 3. Aortic aneurysm stent placement- [facility] 08/16/17 4. Cholecystectomy- [facility] 11/07/17 6. Bowel resection 7. Ankle fracture fixation 8. Tonsillectomy Social History: This patient is a former smoker, drinks wine daily. She lives at home alone but her son has been staying with her for her post-op recovery period. ROS: Full ROM completed; pertinent findings stated in HPI and all others negative. Physical Exam: Vital Signs: Temp Pulse Resp BP Pulse Ox 101.1 F 73 16 161/88 94 11/25/17 02:49 11/25/17 02:49 11/25/17 02:49 11/25/17 02:49 11/25/17 02:49 General: Alert and oriented. Pleasant and cooperative, sitting up on stretcher. HEENT: Head is normocephalic. Significant left periorbital ecchymosis and swelling. EOMI, Pupils equal and reactive. Gross hearing intact, hearing aids in place. No hemotympanum. Nares patent, mild ecchymosis of nasal bridge. Moist mucus membranes. Neck: Neck is supple and symmetric. No obvious deformity. No tenderness to palpation of cervical spine. CV: Pedal and radial pulses 2+ and equal. Bilateral pedal edema. Lungs: Breathing is nonlabored. Abdomen: Multiple abdominal surgical scars and wounds. Abdomen is soft, nontender and nondistended. Neuro: Speech is clear. CN II-XII intact with exception of blurred vision in the left eye. Sensation intact to light touch throughout. Strength 5/5 in upper and lower extremities. Hoffmans negative. Two beats right ankle clonus. No pronator drift. Finger to nose and heel to monique coordination intact. Imagin. CT brain on 11/24/17 shows possible traumatic subarachnoid hemorrhage. 2. CT maxillofacial on 11/24/17 shows left orbital floor fracture. Assessment: This is a 71 year old female with cardiac history including MO and aneurysms who presented to [facility] ED 24 hours or more after a fall. CT shows possible traumatic subarachnoid hemorrhage and left orbital floor fracture. Plan: 1. Admit to ICU 2. Q2 neuro checks and vitals 3. CT brain and cervical spine 0900 11/25/17 4. Tylenol for pain management 5. Out of bed with assistance 6. Heart healthy diet 7. Consult hospital medicine for comanagement medical conditions and left orbital fracture. Vision loss discussed with Dr. Spence, will need Ophthalmology consult in AM. <Kathleen Byrd - Last Filed: 11/25/17 22:51> History and Physical: Agree with above. Patient seen by me the day of admission. Edil Arriaga MD <Sun Arriaga - Last Filed: 11/27/17 09:27>
--- NOTE | 2017-11-25 03:05 | ED ---
Jose Mitchell Rebecca, scribed for Kathryn Ndiaye MD on 11/24/17 at 2204 . Complex/Multi-Sys Presentation - HPI Summary HPI Summary: Pt is a 71 y/o F with a cardiac PMHx and recent surgery for aneurysmal repair and cholecystectomy who presents to ED c/o generalized weakness. Pt has been experiencing weakness since having the recent surgeries. Yesterday, at approximately 1700 she was on her porch and fell down onto her left side, hitting the left side of her face. After the fall, the pt was in pain, but now her pain has resolved. Negative LOC. However, she now has bruising around the left eye and swelling over the L side of her face. Pt presents today as her family prompted her to do so for an evaluation. - History Of Current Complaint Chief Complaint: EDFacialInjury Time Seen by Provider: 11/24/17 21:05 Hx Obtained From: Patient Onset/Duration: Lasting Days - Occurred yesterday, Resolved Severity Currently: None Location: Pain At: - Left side of face - resolved Aggravating Factor(s): Nothing Alleviating Factor(s): Spontaneous resolution Associated Signs And Symptoms: Positive: Other - Bruising are the left eye and swelling over the left side of her face - Allergies/Home Medications Allergies/Adverse Reactions: Allergies Allergy/AdvReac Type Severity Reaction Status Date / Time lisinopril Allergy Coughing Verified 11/24/17 20:45 morphine Allergy Vomiting Verified 11/24/17 22:18 Sulfa (Sulfonamide Allergy Unknown Verified 11/24/17 22:18 Antibiotics) Reaction Details PMH/Surg Hx/FS Hx/Imm Hx Endocrine/Hematology History: Denies: Hx Anticoagulant Therapy, Hx Blood Disorders, Hx Blood Transfusions, Hx Bone Marrow Disease, Hx Diabetes, Hx Systemic Lupus Erythematosus, Hx Sickle Cell Disease, Hx Thyroid Disease, Hx Anemia, Hx Unexplained Bleeding, Other Endocrine/Hematological Disorders Cardiovascular History: Reports: 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 , Hx Angina, Hx Coronary Artery Disease, Hx Hypercholesterolemia, Hx Hypertension - on meds, Other Cardiovascular Problems/Disorders - Aortic valve replacement (pig valve) Denies: Hx Angioplasty, Hx Auto Implanted Cardiovert Defib, Hx Cardiac Arrest , Hx Cardiomegaly, Hx Congenital Heart Disease, Hx Congestive Heart Failure, Hx Deep Vein Thrombosis, Hx Embolism, Hx Hypotension, Hx Pacemaker/ICD, Hx Peripheral Vascular Disease, Hx Rheumatic Fever, Hx Syncope, Hx Valvular Heart Disease Respiratory History: Reports: Hx Seasonal Allergies - current CPAP user, Hx Sleep Apnea - current BiPAP user, Other Respiratory Problems/Disorders - sleep apnea cpap Denies: Hx Asthma, Hx Chronic Bronchitis, Hx Chronic Obstructive Pulmonary Disease (COPD), Hx Cystic Fibrosis, Hx Lung Cancer, Hx Pleural Effusion, Hx Pneumonia, Hx Pulmonary Edema, Hx Pulmonary Embolism GI History: Denies: Hx Cirrhosis, Hx Crohn's Disease, Hx Diverticulosis, Hx Gall Bladder Disease, Hx Gastroesophageal Reflux Disease, Hx Gastrointestinal Bleed, Hx Hiatal Hernia, Hx Irritable Bowel, Hx Jaundice, Hx Obstructive Bowel, Hx Ileostomy, Hx Pyloric Stenosis, Hx Ulcer, Other GI Disorders History: Denies: Hx Acute Renal Failure, Hx Benign Prostatic Hyperplasia, Hx Chronic Renal Failure, Hx Dialysis, Hx Kidney Infection, Hx Kidney Stones, Other Problems/Disorders Musculoskeletal History: Denies: Hx Arthritis, Hx Back Problems, Hx Bursitis, Hx Congenital Bone Abnormalities, Hx Fibromyalgia, Hx Gout, Hx Orthopedic Injury, Hx Osteoporosis, Hx Scoliosis, Hx Tendonitis, Other Musculoskeletal History Sensory History: Reports: Hx Contacts or Glasses, Hx Vision Problem, Hx Hearing Aid, Hx Hearing Problem Denies: Hx Cataracts, Hx Eye Injury, Hx Eye Prosthesis, Hx Glaucoma, Hx Legally Blind, Hx Macular Degeneration, Hx Deafness, Other Sensory Impairments Opthamlomology History: Reports: Hx Contacts or Glasses, Hx Vision Problem Denies: Hx Cataracts, Hx Eye Injury, Hx Eye Prosthesis, Hx Glaucoma, Hx Legally Blind, Hx Macular Degeneration, Other Sensory Impairments Neurological History: Reports: Hx Headaches, Hx Migraine Denies: Hx Dementia, Hx Developmental Delay, Hx Nerve Disease, Hx Seizures, Hx Spinal Cord Injury, Hx Transient Ischemic Attacks (TIA), Other Neuro Impairments/Disorders Psychiatric History: Reports: Hx Anxiety Denies: Hx Attention Deficit Hyperactivity Disorder, Hx Eating Disorder, Hx Depression, Hx Panic Disorder, Hx Post Traumatic Stress Disorder, Hx Inpatient Treatment, Hx Community Mental Health Tx, Hx Schizophrenia, Hx Bipolar Disorder , Hx Suicide Attempt, Hx of Violent Episodes Against Others, Hx Substance Abuse , Other Psychiatric Issues/Disorders - Surgical History Surgery Procedure, Year, and Place: 1998 [facility]-bowel resection. 1999 [facility]-(left) ankle FX+repair. 1961 tonsils. dental surgeries cardiac surgeries Hx Anesthesia Reactions: No - Immunization History Date of Tetanus Vaccine: unk Date of Influenza Vaccine: fall 2016 Infectious Disease History: No Infectious Disease History: Denies: Hx Clostridium Difficile, Hx Hepatitis - Hepatitis as a child, Hx Human Immunodeficiency Virus (HIV), Hx of Known/Suspected MRSA, Hx Shingles, Hx Tuberculosis, Hx Known/Suspected VRE, Hx Known/Suspected VRSA, History Other Infectious Disease, Traveled Outside the [place] in Last 30 Days - Family History Known Family History: Positive: Hypertension - Social History Alcohol Use: Daily Alcohol Amount: 2-3 glasses of wine/day, not every day Substance Use Type: Reports: None Smoking Status (MU): Former Smoker Type: Cigarettes Amount Used/How Often: 1 or 2 cigarettes/day Have You Smoked in the Last Year: No Review of Systems Positive: Other - Swelling on the left side of the face Positive: Other - Bruising around the left eye Neurological: Other - NEGATIVE: LOC All Other Systems Reviewed And Are Negative: Yes Physical Exam - Summary Physical Exam Summary: VITAL SIGNS: Reviewed. GENERAL: ~Patient is a well-developed and nourished female who is lying comfortable in the stretcher. Patient is not in any acute respiratory distress. HEAD AND FACE: Moderate ecchymosis over the left cheek. No skull depressions. No sinus tenderness. EYES: PERRLA, EOMI x 2, no nystagmus. Very dense subconjunctival hematoma on the left. Dense area of ecchymosis over the left orbital area. EARS: Hearing grossly intact. Ear canals and tympanic membranes are within normal limits. MOUTH: Oropharynx within normal limits. NECK: Supple, trachea is midline, no adenopathy, no JVD, no carotid bruit, no c- spine tenderness, neck with full ROM. CHEST: Symmetric, no tenderness at palpation LUNGS: Clear to auscultation bilaterally. No wheezing or crackles. CVS: Regular rate and rhythm, S1 and S2 present, no murmurs or gallops appreciated. ABDOMEN: Soft, non-tender. No signs of distention. No rebound no guarding, and no masses palpated. Bowel sounds are normal. EXTREMITIES: FROM in all major joints, no edema, no cyanosis or clubbing. NEURO: Alert and oriented x 3. No acute neurological deficits. Speech is normal and follows commands. SKIN: Dry and warm GCS: 15 Triage Information Reviewed: Yes Vital Signs On Initial Exam: Initial Vitals Temp Pulse Resp BP Pulse Ox 100 F 78 16 156/82 94 11/24/17 20:35 11/24/17 20:35 11/24/17 20:35 11/24/17 20:35 11/24/17 20:35 Vital Signs Reviewed: Yes Diagnostics - Vital Signs Vital Signs Temp Pulse Resp BP Pulse Ox 11/24/17 20:35 100 F 78 16 156/82 94 - Laboratory Result Diagrams: 11/24/17 21:38 11/24/17 21:38 Lab Statement: Any lab studies that have been ordered have been reviewed, and results considered in the medical decision making process. - CT Brain CT CT Interpretation: Positive (See Comments) - 1.FINDING REQUIRING FOLLOW-UP OR FURTHER EVALUATION. Minimal increased attenuation in the LEFT sylvian fissure area. Some of this appears to be cortical; however there may also be some increased attenuation in the sulci as well. The differential diagnosis includes normal subarachnoid hemorrhage and to a lesser extent parenchymal contusion. Short-term follow-up should be obtained. 2. Facial bone evaluation and discussion are limited in this report. Concurrent specific imaging is obtained and is reported separately. ED physician reviewed this radiology report. Pending official report. CT Interpretation Completed By: Radiologist Maxillofacial CT CT Interpretation: Positive (See Comments) - 1.Fracture of the LEFT orbital floor with elevation of the fragment approximately 3 mm. Mild to moderate soft tissue edema and/or contusion in the inferior portion of the extraconal LEFT orbit. This extends to the area around the inferior rectus muscle. No extension of the orbital soft tissues into the maxillary sinus. 2. There are teeth which are missing. The age of this finding is indeterminate however this does not appear to be acute. 3. Opacification of the LEFT maxillary sinus. This is of increased density. Findings are most consistent with blood from the adjacent orbital floor fracture. There is irregularity in the superolateral margin of the maxillary sinus also suggesting fracture extending into this area. 4. Soft tissue edema and/or contusion as noted. 5. CT had evaluation and discussion are limited in this report. Concurrent specific imaging is obtained and is reported separately. ED physician reviewed this radiology report. Pending official report. CT Interpretation Completed By: Radiologist Complex Multi-Symp Course/Dx Assessment/Plan: Pt is a 71 y/o F with a cardiac PMHx and recent surgery for aneurysmal repair and cholecystectomy who presents to ED c/o generalized weakness since having the recent surgeries. Yesterday, at approximately 1700 she was on her porch and fell down onto her left side, hitting the left side of her face. After the fall, the pt was in pain, but now her pain has resolved. Negative LOC. However, she now has bruising around the left eye and swelling over the L side of her face. Pt presents today as her family prompted her to do so for an evaluation. Blood work was done. Brain CT and Maxillofacial CT findings above. In the ED course, pt received Zosyn. Discussed care of pt with Kathleen Byrd, neurovascular surgeon PA, at 2320 who will look at the CTs and call back. Discussed care of pt with Kathleen Byrd again at 0025 who states that the pt will be admitted to ICU and will be seen as an inpatient. Discussed care of pt with Dr. Spence at 0035 who would like a reconsultation with the neurosurgeon. Discussed care of pt with Kathleen Byrd at 0038 who will evaluate the pt in the ED. Pt will be admitted with Dx of subarachnoid hemorrhage and left orbit fracture. Allergies noted. - Diagnoses Provider Diagnoses: Subarachnoid hemorrhage, traumatic, Left orbit fracture - Physician Notifications Discussed Care Of Patient With: Kathleen Byrd - Neurosurgeon FAUZIA Time Discussed With Above Provider: 23:20 Instructed by Provider To: Other - Will look at the CTs and call back. Discussed care of pt with Kathleen Byrd again at 0025 who states that the pt will be admitted to ICU and will be seen as an inpatient. Discussed care of pt with Dr. Spence at 0035 who would like a reconsultation with the neurosurgeon. Discussed care of pt with Kathleen Byrd at 0038 who will evaluate the pt in the ED. - Critical Care Time Critical Care Time: 30-74 min - 55 mintues Discharge - Sign-Out/Discharge Documenting (check all that apply): Discharge/Admit/Transfer - Admit - Discharge Plan Condition: Critical Disposition: ADMITTED TO [facility] Referrals: Tri Taveras MD [Primary Care Provider] - The documentation as recorded by the Jose mendiola Rebecca accurately reflects the service I personally performed and the decisions made by me, Kathryn Ndiaye MD.
[2017-11-25] MEDS: Acetaminophen TAB* 325 MG PO PRN ×3 (03:17→18:39)
--- NOTE | 2017-11-25 07:48 | RAD ---
HISTORY: Fall facial injury, headache COMPARISONS: None TECHNIQUE: Multiple contiguous axial CT scans were obtained of the head without intravenous contrast. FINDINGS: HEMORRHAGE/INFARCT: There is a small amount of increased attenuation along the left sylvian fissure which may represent a small amount subarachnoid hemorrhage and/or parenchymal contusion. Elsewhere, there is no hemorrhage or acute infarct. MASSES/SHIFT: There is no mass or shift. EXTRA-AXIAL SPACES: As noted above, there is increased attenuation along the left sylvian fissure which may represent a small amount of subarachnoid hemorrhage. SULCI AND VENTRICLES: The sulci and ventricles are normal in size and position for the patient's stated age. CEREBRUM: As noted above, there is increased attenuation along the left sylvian fissure and posterior insula which may represent a small amount of subarachnoid hemorrhage and/or parenchymal contusion BRAINSTEM: There are no focal parenchymal abnormalities. CEREBELLUM: There are no focal parenchymal abnormalities. VESSELS: The vessels are grossly normal. PARANASAL SINUSES: There is opacification of the left maxillary sinus. ORBITS: The orbits are unremarkable. BONES AND SOFT TISSUE: No bone or soft tissue abnormalities are noted. OTHER: None IMPRESSION: THERE IS SMALL AMOUNT OF INCREASED ATTENUATION ALONG THE LEFT SYLVIAN FISSURE WHICH MAY REPRESENT A SMALL AMOUNT OF SUBARACHNOID HEMORRHAGE AND/OR PARENCHYMAL CONTUSION. THERE IS NO SHIFT. RECOMMEND ATTENTION ON FOLLOW-UP IMAGING. THIS FINDING WAS REPORTED BY DR. GARZA AT APPROXIMATELY 9:45 PM ON NOVEMBER 24, 2017
--- NOTE | 2017-11-25 07:52 | RAD ---
HISTORY: Facial trauma, fall COMPARISONS: Head CT dated November 24, 2012 TECHNIQUE: Multiple contiguous axial CT scans were obtained of the face without intravenous contrast, with coronal and sagittal multiplanar reformations. FINDINGS: BONES: There is a slightly displaced fracture of the left inferior orbital wall that extends to the anterior maxilla. The left orbital floor fracture extends approximately 1 cm, with approximately 0.2 cm a displacement. ORBITS: There is small amount of extraconal hematoma along the floor of the orbit. There is no intraconal or retrobulbar hematoma. The globes are round. There is no appreciable herniation of orbital contents through the orbital floor fracture. PARANASAL SINUSES: There is opacification of the left maxillary sinus with an air-fluid level. The fluid is high attenuation suggestive of blood related to the fracture. BRAIN AND SOFT TISSUE: As noted on CT of the head, there is high attenuation material along the left posterior insula and sylvian fissure. OTHER: There are periapical lucencies along the right maxillary bicuspids. IMPRESSION: 1. FRACTURES OF THE LEFT ORBITAL FLOOR AND ANTERIOR MAXILLA. THERE IS EXTRACONAL HEMATOMA ALONG THE FLOOR OF THE LEFT ORBIT WITHOUT INTRACONAL OR RETROBULBAR HEMATOMA. THERE IS NO HERNIATION OF ORBITAL CONTENTS THROUGH THE FLOOR OF THE ORBIT. 2. THERE IS HIGH ATTENUATION MATERIAL WITHIN THE LEFT MAXILLA CONSISTENT WITH BLOOD LIKELY RELATED TO THE FRACTURE. 3. THERE IS PERIAPICAL LUCENCY ALONG A RIGHT MAXILLARY BICUSPID CONSISTENT WITH A DENTAL APICAL RADICULAR CYST.
[2017-11-25 08:13] LABS: ABS Basophils 0 10^3/ul (0-0.2); ABS Eosinophils 0.2 10^3/ul (0-0.6); ABS Lymphocytes 1.1 10^3/ul (1.0-4.8); ABS Monocytes 0.5 10^3/ul (0-0.8); ABS Neutrophils 4.1 10^3/ul (1.5-7.7); ABS Nucleated RBC 0 10^3/ul; Eosinophil % 2.5 % (0-6); Hematocrit 26 % (35-47); Hemoglobin 8.5 g/dl (12.0-16.0); Lymphocyte % 18.3 % (25-47); Mean Corpuscular HGB Conc 32 g/dl (31-36); Mean Corpuscular Hemoglobin 24 pg (27-31); Mean Corpuscular Volume 73 fL (80-97); Mean Platelet Volume 8.4 um3 (7.4-10.4); Nucleated Red Blood Cells % 0; Platelet Count 207 10^3/ul (150-450); Red Blood Count 3.64 10^6/ul (4.0-5.4); Red Cell Distribution Width 19 % (10.5-15)
[2017-11-25] MEDS: Aspirin EC TAB* 81 MG TAB.EC PO SCH (08:32)
[2017-11-25] MEDS: Losartan TAB* 25 MG PO SCH (08:32)
[2017-11-25] MEDS: Docusate CAP* 100 MG PO SCH ×2 (08:32→21:03)
[2017-11-25] MEDS: Carvedilol TAB* 25 MG PO SCH ×2 (08:32→21:03)
[2017-11-25] MEDS: Atorvastatin* 40 MG TAB PO SCH (08:32)
[2017-11-25] MEDS: amLODIPine TAB* 5 MG PO SCH (08:32)
[2017-11-25] MEDS ORDERED: Magnesium Sulfate 2 GM IV* 2 GM/50 ML BAG IVPB ONE (08:34)
[2017-11-25] MEDS ORDERED: KCL 20 MEQ/100 ML IVPREMIX* 20 MEQ/100 ML BAG IV ONE (08:54)
[2017-11-25] MEDS ORDERED: Clopidogrel TAB* 75 MG PO SCH (09:00)
--- NOTE | 2017-11-25 09:02 | RAD ---
HISTORY: Follow-up, status post fall COMPARISONS: November 24, 2017 TECHNIQUE: Multiple contiguous axial CT scans were obtained of the head without intravenous contrast. FINDINGS: HEMORRHAGE/INFARCT: Again noted is small amount of high attenuation material along the left insula and sylvian fissure. This is slightly decreased from the previous examination. MASSES/SHIFT: There is no mass or shift. EXTRA-AXIAL SPACES: Again noted is a small amount of high attenuation material along the left sylvian fissure, decreased from the previous examination. SULCI AND VENTRICLES: The sulci and ventricles are normal in size and position for the patient's stated age. CEREBRUM: Again noted is small amount of high attenuation material along the left insula and sylvian fissure. This is slightly decreased from the previous examination. BRAINSTEM: There are no focal parenchymal abnormalities. CEREBELLUM: There are no focal parenchymal abnormalities. VESSELS: The vessels are grossly normal. PARANASAL SINUSES: There is opacification of the left axillar sinus. ORBITS: The orbits are unremarkable. BONES AND SOFT TISSUE: No bone or soft tissue abnormalities are noted. OTHER: None IMPRESSION: AGAIN NOTED IS A SMALL AMOUNT OF HIGH ATTENUATION MATERIAL ALONG THE LEFT SYLVIAN FISSURE AND INSULA SUGGESTIVE OF SMALL AMOUNT OF SUBARACHNOID HEMORRHAGE VERSUS PARENCHYMAL CONTUSION. THIS IS SLIGHTLY DECREASED FROM THE NOVEMBER 24, 2017 EXAMINATION. RECOMMEND CONTINUED ATTENTION ON FOLLOW-UP.
--- NOTE | 2017-11-25 09:04 | RAD ---
HISTORY: Fall, facial fracture, head injury COMPARISONS: None TECHNIQUE: Multiple contiguous axial CT scans were obtained of the cervical spine without intravenous contrast, with coronal and sagittal multiplanar reformations. FINDINGS: BRAIN: The visualized brain is unremarkable CENTRAL CANAL: Evaluation of the central canal is limited on CT technique; however, there is no obvious canalicular mass or epidural hemorrhage. ALIGNMENT: There is straightening of the cervical lordosis. VERTEBRAL BODIES: There is multilevel anterolateral marginal osteophyte formation. There is no displaced fracture or dislocation. JOINTS: There is uncovertebral and facet osteoarthritis most pronounced at C5-C6. MUSCULATURE: Unremarkable INTERVERTEBRAL DISCS: There is diffuse loss of intervertebral disc height. AXIAL IMAGES: C2-C3: There is no osseous neural foraminal narrowing or central canal stenosis. C3-C4: There is no osseous neural foraminal narrowing or central canal stenosis. C4-C5: There is no osseous neural foraminal narrowing or central canal stenosis. C5-C6: There is bilateral uncovertebral hypertrophy. There is moderate right and mild left neural foraminal narrowing. There is mild narrowing of the central canal. C6-C7: There is no osseous neural foraminal narrowing or central canal stenosis. C7-T1: There is no osseous neural foraminal narrowing or central canal stenosis. SOFT TISSUES: There are large bilateral pleural effusions. The patient is status post aortic stent graft. There is a cluster septal thickening consistent with pulmonary interstitial edema. OTHER: None. IMPRESSION: 1. STRAIGHTENING OF THE CERVICAL LORDOSIS. 2. DEGENERATIVE DISC DISEASE AND OSTEOARTHRITIS MOST PRONOUNCED AT C5-C6. 3. NO ACUTE OSSEOUS INJURY TO THE CERVICAL SPINE. 4. LARGE BILATERAL PLEURAL EFFUSIONS WITH PULMONARY INTERSTITIAL EDEMA
[2017-11-25] MEDS: Potassium Chlor TAB* 20 MEQ TAB.ER PO SCH ×2 (09:07→11:31)
[2017-11-25] MEDS ORDERED: Furosemide TAB* 20 MG PO ONE (10:00)
--- NOTE | 2017-11-25 11:49 | PN ---
Progress Note - Progress Note Date of Service: 11/25/17 SOAP: Subjective: []Patient was seen earlier today. No events ON. Lt periorbital echymoses, improved periorbital edema per patient. No complains of LOC, No JIMENES, No episode of JIMENES prior to her fall. Patient described that she fell in her porch, because ' her legs gave out". Patient reported that was not able to see from her left eye since the fall. She noticed it the day of the fall, one day prior to her presentation in the hospital. No complains of neck or back pain. Objective: []VSS AAOx3, KELSEY, CN II-XII grossly intact, except decreased vision left eye. Difficult to assess optic lozano, cannot count fingers with left eye. Motor 5/5 all extremities, no pronator drift. Sensory grossly intact to light touch. DTR +1 bilaterally No tenderness to palpation cervical, thoracic or lumbar spine. Free ROM cervical spine. Assessment: []71 yof fall, small left F/T contusion vs SAH. Lt orbital fracture Plan: []Monitor VS, Neurochecks SZ prophylaxis for 7 days Hold anticoagulation if feasible from vascular standpoint. Repeat CT this am stable. CT C spine negative for fracture. Given presentation, history and CT findings, hemorrhagic contusion more likely. Repeat CT/ CTA of head in am. Patient examined and discussed with Dr Gonzalez. Opthalmology consult. Edil Arriaga MD
--- NOTE | 2017-11-25 12:43 | CONSULT ---
Consult Consult: OPHTHALMOLOGY CONSULT CC: vision loss after fall HPI: 71yo F, s/p fall 11/23/17 with vision loss in the left eye. She has a hx ocular hx of cataract surgery and Fuchs enotheliopathy, has vision loss to level of HM after the fall which she sustained a left orbital floor fracture and a subarachnoid hemorrhage.. She reports no improvement in vision in the left eye since the fall. No right eye changes. PMH: pertinent for recent aortic stenting and on blood thinners POH: cataract surgery ou, fuchs Exam: VA: OD: 20/60 near cc. OS: HM near cc IOP: soft OD. soft os EOMS: full ou, pain on upgaze OS VF: full OD, diffusly depressed OS Pupils: RR OU. 2+ APD OS dilated with phenylephrine/tropicamide OU 11:28am (verified with nursing staff for neuro checks) Lids: 3+ periorbital ecchymosis OS Conj: w/q OD. sub conj heme 360 OS Cornea: slight haze OU AC: d/q OU lens: PCIOL OU Vit: clear OU optic nerve: SP OU vasculature: wnl OU macula: flat OU periphery: no RT/RD 360 OU Imaging: CT max face 11/24/17: radiology read with left orbital floor fracture, no radiographic signs of entrapment. Mild extraconal hematoma. CT head 11/25/17: orbits unremarkable A/P 1: Traumatic optic neuropathy left eye -the optic canals appear patent and no intraconal hematoma. Afferent pupillary defect and degree of vision loss with intact ocular structures suggest TON as cause for vision loss. Given the degree of vision loss this many hours after the injury, the prognosis for vision return is poor. I discussed this with her and advised on the guarded vision prognosis. -a lateral canthotomy is not indicated as imaging did not show intraconal hemorrhage, she has full EOMS and is not significantly proptotic now. I also do not think that high dose steroids would be beneficial (especially in light of the CRASH trial and her head injury) -I recommend she follow up in my out patient office in 1-2weeks 2: Left Extraconal hematoma -mild. recommend to keep head of bed elevated to 30 degrees for 48hours. avoid bending over or strenuous activity. -avoid blood thinners if able, but in light of her aortic stenting, if they are indicated then I would resume them when permissible in the setting of her subarachnoid hemorrhage -recommend artificial tears 3-4x/day to the left eye 3: Left orbital floor fracture -minimal displacement. no entrapment on exam -rec avoidance of blowing her nose for 1 week. can use saline nasal spray. Radhames Carrizales MD
[2017-11-25 14:29] LABS: EGFR Non-African American 68.5 (>60)
[2017-11-25] MEDS: ALPRAZolam TAB* 0.25 MG PO PRN ×2 (14:37→21:03)
[2017-11-25] MEDS ORDERED: Potassium Chlor TAB* 20 MEQ TAB.ER PO ONE (15:13)
[2017-11-25] MEDS: Artificial Tears* 15 ML BTL LEFT EYE SCH ×3 (16:16→21:06)
[2017-11-25] MEDS: levETIRAcetam TAB* 500 MG PO SCH ×2 (16:17→21:03)
--- NOTE | 2017-11-25 17:26 | CONS ---
CONSULTATION REPORT: DATE OF CONSULT: 11/25/17 CONSULTING PROVIDER: Adebayo Gonzalez MD REFERRING PHYSICIAN: Dr. Arriaga, Neurosurgery. PRIMARY CARE PHYSICIAN: Dr. Taveras. VASCULAR SURGEON: Ky Moon MD, [facility] REASON FOR CONSULT: Medical management, history of CAD, aortic repair. CHIEF COMPLAINT: Mechanical fall, left vision loss. HISTORY OF PRESENT ILLNESS: Ms. Chavarria is a 71-year-old female with past medical history of CAD, status post anterior STEMI in 2013 with stent; dilated ascending and descending aortic aneurysm, status post aortic valve repair and status post stent in August 2017; Fuchs' disease bilaterally; recent cholecystectomy. The patient usually uses a cane or a walker since recent surgery for cholecystectomy, but 2 days prior to admission she was walking on her porch (without the cane) when she felt like her legs gave out and she fell backwards to the ground. She denied any loss of consciousness. She was eventually able to crawl into the house and get neighborly assistance. She slept overnight and her left eye was very swollen initially. The day prior to admission in the morning, her eyes started to get less swollen, was able to open it and she noticed that her vision was essentially blacked out centrally and medially. She eventually presented to the emergency room after friends convinced in the afternoon. At [facility] Emergency Room, she had a CT of her maxillofacial, which showed a left orbital fracture with extraconal hematoma and a CT of the head which showed a small amount of increased attenuation along the left sylvian fissure, which may represent a small subarachnoid hemorrhage and/or parenchymal contusion. There was no midline shift. The patient was admitted by physician's dyer assistant, Kathleen Byrd of Neurosurgery, who then consulted medicine team for further co-management of her comorbidities. She is about to get a repeat CT of her head now by Dr. Arriaga. She reports some ongoing lower extremity edema ever since her cholecystectomy. Denies any chest pain, shortness of breath. She does have some pain with upward eye motions in the left side. She has been following with [place] [facility] honer operator automatic, Dr. Pierre for several years for Fuchs' disease for which she takes Cha 128 eye drops [id number]. She has 20/40 vision with that left eye worse at baseline. She missed her followup with Dr. Moon of [facility] given the gallbladder issues. She did tolerate having her Plavix held for 5 days prior to the cholecystectomy. She had gallbladder drain in prior to that. This was all at [facility]. Other workup of note, potassium 2.8, hemoglobin of 8.7. She was given one dose of Zosyn in the emergency room by Dr. Ndiaye of Emergency Medicine. Dr. Carrizales of Ophthalmology has been consulted and will be seeing the patient shortly. PAST MEDICAL HISTORY: Coronary artery disease with STEMI [place] [address] Gilbert; ascending and descending aortic aneurysm, status post repair at [facility] and open heart surgery with aortic valve repair, this was September 2015. She had an aortic stent with Dr. Moon of [facility], August 2017; cholecystectomy 11/07/17 up at [place], [place]. She had a postoperative AFib that has now returned, was briefly on amiodarone. She has Fuchs' bilaterally. She also has hyperlipidemia, hypertension and history of diverticulosis status post bowel resection 20 years ago. PAST SURGICAL HISTORY: Cardiac cath in 2013; open heart surgery; aortic aneurysm, stent in October 2017; [facility]; bowel resection 20 years ago; ankle fracture or fixation; tonsillectomy. SOCIAL HISTORY: The patient is a former smoker of 20 years total about 1 pack per summer. She drinks wine 0 to 3 glasses at night. She is a full code. Her medical surrogate is Codey Chavarria Jr. her elder son. She has 2 other sons. 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 FAMILY HISTORY: Father had CAD and CABG. Mother had alcohol abuse and COPD. REVIEW OF SYSTEMS: A complete 14-point review of systems is negative except as per HPI. PHYSICAL EXAM: General Appearance: No acute distress. Vital Signs: Temperature is 99.7, T-max was 101.1, heart rate 60 to 70s, satting 88% to 93% on room air, respiratory rate 18 and 33 briefly, blood pressure 144/76. HEENT: Normocephalic with evidence of traumatic injury with ecchymosis to the left eye and slightly much smaller ecchymosis on the left cheek. Pupils are equally round and reactive to light and accommodation. No scleral icterus. Mucous membranes moist. Neck: Supple. Good range of motion. Pulmonary: Clear to auscultation bilaterally with no wheezing, rales, or rhonchi. Cardiovascular: Regular rate and rhythm. No murmurs, rubs or gallops. Abdomen: Soft, slight tenderness to right lower quadrant. No Apodaca's sign. No rebound or guarding. Extremities: Warm, well perfused, 1+ peripheral edema bilaterally. Skin: No lesions or rashes other than the ecchymosis on the face. Neuro: Eye movements are intact, though painful on the upper quadrant in the left eye. She has central and medial vision loss complete in the left eye. He does have preserved peripheral vision laterally. There is blood in the sclera. Vision is intact in the right eye. Cranial nerves otherwise intact. Naval Inspector strength 5/5. Hip flexion 5/5. Dorsi and plantar flexion 5/5. Reflexes are intact. LABORATORY DATA: White count 6.0, hemoglobin 8.5, hematocrit 26, RDW 19, platelets 207, MCV 73. INR 1.11. Sodium 141, potassium 2.6, chloride 106, carbon dioxide 27, BUN 11, creatinine 0.75, glucose 101, magnesium 1.8, alk phos 90, AST 18, ALT 13, total bili 0.40. IMAGING: The initial CT of the brain notes a small amount of increased attenuation along the left sylvian fissure, which may represent a small amount subarachnoid hemorrhage and/or parenchymal contusion. There was no shift. Recommendation for followup imaging. CT of the maxillofacial demonstrate fractures of the left orbital floor and anterior maxilla. There is extraconal hematoma along the floor of the left orbit without intraconal or retrobulbar hematoma. There is no herniation of the oral contents to the floor of the orbit. There is high attenuation material within the left maxilla consistent with blood likely related to the fracture. There is periapical lucency along right maxillary bicuspid consistent with a dental apical radicular cyst. ASSESSMENT AND PLAN: Carmela Chavarria is a 71-year-old female with history of CAD, STEMI stents, aortic stents now and recent cholecystectomy, presenting with mechanical fall with left facial trauma including a left orbital fracture, extraconal hematoma with central and medial vision loss. Dr. Carrizales of Ophthalmology has been consulted and will see the patient soon after she returns from her repeat CT head. This case was also discussed with Dr. Arriaga of Neurosurgery. He does not think there is any surgical intervention from his perspective. A repeat CT of the head is pending to monitor for potential small subarachnoid hemorrhage. I am holding her Plavix and we will try to get a hold of Dr. Moon's office of [facility]. I am adding a BNP. She reports her last echo was prior to her cholecystectomy about a month ago. Her last echo in our system is from August 2015 showed ejection fraction of 40% to 45% with abnormal left ventricular diastolic filling with inferior hypokinesis, moderate tricuspid regurgitation, moderate pulmonary hypertension, mild mitral regurgitation. For her CAD and hypertension, we will continue her Coreg 25 mg b.i.d., losartan 25 mg daily. She is also on amlodipine 10 mg daily which may be contributing to her lower extremity edema. For hyperlipidemia, we would recommend continuing her Lipitor 40 mg daily. She needs aggressive electrolyte repletion especially given her history of postoperative atrial fibrillation, magnesium goal above 2, potassium above 4. She per Dr. Arriaga will be monitored in the ICU for another day. She is on q.2 hour neuro checks. We will follow up recommendations from Dr. Carrizales in terms of her vision loss. She is a full code. She is on heart healthy diet. Her medical surrogate is her son, Codey Chavarria Jr. She will be maintained on telemetry inpatient status. She is a Neurosurgery patient with medicine consulting. Thank you for this interesting consult. [id number]/[facility] #: [id number] PADMINI
[2017-11-25] MEDS: Sertraline* 100 MG TAB PO SCH (21:03)
[2017-11-26] MEDS: Acetaminophen TAB* 325 MG PO PRN ×2 (07:35→15:30)
[2017-11-26] MEDS: Docusate CAP* 100 MG PO SCH ×2 (07:35→21:01)
[2017-11-26] MEDS: amLODIPine TAB* 5 MG PO SCH (07:36)
[2017-11-26] MEDS: levETIRAcetam TAB* 500 MG PO SCH ×2 (07:38→21:11)
[2017-11-26] MEDS: Losartan TAB* 25 MG PO SCH (07:38)
[2017-11-26] MEDS: Atorvastatin* 40 MG TAB PO SCH (07:38)
[2017-11-26] MEDS: Aspirin EC TAB* 81 MG TAB.EC PO SCH (07:39)
[2017-11-26] MEDS: Carvedilol TAB* 25 MG PO SCH ×2 (07:39→21:11)
[2017-11-26] MEDS: Sodium Chloride 2% OPTH.SOL* 15 ML BTL RIGHT EYE SCH (07:40)
[2017-11-26] MEDS: Artificial Tears* 15 ML BTL LEFT EYE SCH ×4 (07:41→21:11)
--- NOTE | 2017-11-26 08:32 | PN ---
Progress Note - Progress Note Date of Service: 11/26/17 SOAP: Subjective: [Patient with possible traumatic SAH. Reports being tired this morning and not sleeping well last night. Feels like she is losing the strength that she has regained after gallbladder surgery. Left eye vision loss unchanged. Denies headache, periorbital pain, nausea. ] Objective: [ Vital Signs: Temp Pulse Resp BP Pulse Ox 97.9 F 81 24 157/66 97 11/26/17 07:21 11/26/17 07:21 11/26/17 07:21 11/26/17 07:21 11/26/17 07:21 General: Alert and oriented. Laying recumbent in bed. Neuro: Speech is clear. CN II-XII intact with exception of left eye vision loss. Strength and sensation intact. No pronator drift. Extremities: Pedal edema improved. CT brain on 11/26/17 is unchanged from previous study CTA head and neck on 11/26/17 shows post op changes with thoracic stent and right pleural effusion. No aneurysm.] Assessment: [71 yo female, s/p fall sustaining SAH v contusion. Stable CT brain, CTA head and neck show no aneurysm. Patient remains stable. No neurosurgical intervention indicated. This case was discussed with Dr. Arriaga and Dr. Alves. ] Plan: [1. Continue seizure prophylaxis x7 days. 2. Will discharge when medically cleared, follow up in office with Dr. Arriaga in one month with updated CT brain. ]
[2017-11-26] MEDS ORDERED: Furosemide TAB* 20 MG PO SCH (09:00)
[2017-11-26] MEDS ORDERED: Iohexol 350* (CONTRAST) 500 ML MDV IV ONE (09:35)
[2017-11-26] MEDS ORDERED: Iodixanol* (CONTRAST) 320 MG/ML 100 ML SDV IV ONE (10:05)
--- NOTE | 2017-11-26 10:17 | RAD ---
INDICATION: Subarachnoid hemorrhage/parenchymal [id number] COMPARISON: CT brain November 25, 2017 TECHNIQUE: Noncontrast axial source images were acquired from the skull base to the vertex. FINDINGS: Ventricles/sulci: The ventricles and cisterns are normal in size and configuration for age. Brain parenchyma: There is a small focus of increased attenuation adjacent left sylvian fissure which is most consistent with a small amount of subarachnoid hemorrhage. This is unchanged, however.. Intracranial hemorrhage:There is a small amount of subarachnoid hemorrhage at the level of the left sylvian fissure, unchanged. Extra-axial spaces: There are no abnormal extra axial fluid collections or evidence of extra-axial mass. Calvarium: There is no calvarial fracture or other calvarial abnormality. Scalp: There is no evidence of scalp or extracalvarial soft tissue abnormality. Paranasal sinuses/mastoid: There is complete opacification of the visualized left maxillary antrum, unchanged. Other: None. IMPRESSION: SMALL FOCUS OF INCREASED ATTENUATION ALONG THE SYLVIAN FISSURE, UNCHANGED. THIS MOST CONSISTENT WITH SUBARACHNOID HEMORRHAGE. THIS REMAINS STABLE FINDING.
--- NOTE | 2017-11-26 10:26 | RAD ---
INDICATION: Intracranial hemorrhage COMPARISON: Noncontrast CT brain same date; CT brain November 24, 2017; CTA chest/abdomen/pelvis August 07, 2017 TECHNIQUE: Axial source images were acquired with coronal and sagittal reconstructions. CT angiographic technique was utilized with injection of 80 mL Visipaque 320. FINDINGS: Aortic arch: There are postsurgical changes about the aortic arch consistent with endovascular stent graft. This is imaged only in part and has been evaluated with CT angiography previously. There are no CT angiographic abnormalities of the great vessels arising from the arch. Right carotid: The common carotid artery, carotid bifurcation, extracranial portions of the internal carotid artery, carotid artery at the skull base, carotid siphon, and carotid termination appear widely patent. There is prominent tortuosity of the internal carotid artery. Left carotid:The common carotid artery, carotid bifurcation, extracranial portions of the internal carotid artery, carotid artery at the skull base, carotid siphon, and carotid termination appear widely patent. There is prominent tortuosity of the internal carotid artery. Right middle and anterior cerebral arteries: There are no CT angiographic abnormalities of the middle or anterior cerebral arteries. Left middle and anterior cerebral arteries: There are no CT angiographic abnormalities of the middle or anterior cerebral arteries Right vertebral: The CT angiographic appearance of the vertebral artery is normal. Left vertebral: The CT angiographic appearance of the vertebral artery is normal. Basilar artery: The basilar artery and basilar tip appear normal. Posterior cerebral arteries: The distal distribution of the right and left posterior cerebral arteries is normal. [place] of [place]: The CT angiographic appearance of the [place] is normal. Source images show, in addition to the postoperative changes about the thoracic aorta, moderate sized right-sided pleural effusion. IMPRESSION: 1. NO CT ANGIOGRAPHIC EVIDENCE OF SIGNIFICANT STENOSIS, ANEURYSM, OR BRANCH OCCLUSION. POSTOPERATIVE CHANGES ABOUT THE THORACIC AORTA WITH ENDOVASCULAR STENT GRAFT PLACEMENT HAVE BEEN REPORTED PREVIOUSLY. 2. THERE IS A MODERATE SIZED RIGHT-SIDED PLEURAL EFFUSION. THIS CAN BE EVALUATED WITH A FOLLOW-UP CHEST X-RAY. CPT II Codes: 3100F PQRS
[2017-11-26] MEDS ORDERED: Potassium Chloride LIQUID* 20 MEQ PACKET PO SCH (12:00)
--- NOTE | 2017-11-26 12:01 | RAD ---
INDICATION: Right subpleural effusion. Thoracic aneurysm with repair COMPARISON: Chest x-ray August 07, 2017 TECHNIQUE: An AP portable view obtained at 0146 hours is submitted. FINDINGS: Bones/Soft Tissues: There are no acute bony findings. Cardiomediastinal: The correct silhouette is unchanged. There is prior endovascular stent placement. Lungs: There is airspace disease in right lung base. Pleura: There is a moderate sized right-sided effusion. Other: None IMPRESSION: THE NECK SILHOUETTE APPEARS UNCHANGED. THERE ARE RIGHT BASILAR ABNORMALITIES WITH A RIGHT-SIDED EFFUSION
--- NOTE | 2017-11-26 12:03 | PN ---
Subjective Date of Service: 11/26/17 Interval History: No overnight events. She feels sleepy this morning--she wasn't able to sleep well due to having her head elevated. She has walked to the bathroom but no farther, and she has some pain in her left hip. Vision is unchanged in the left eye. She denies melena, hematochezia, or vaginal bleeding. No headache. Objective Active Medications: Acetaminophen (Tylenol Tab*) 650 mg PO Q4H PRN PRN Reason: PAIN Last Admin: 11/26/17 07:35 Dose: 650 mg Alprazolam (Xanax Tab*) 0.25 mg PO BID PRN PRN Reason: ANXIETY Last Admin: 11/25/17 21:03 Dose: 0.25 mg Amlodipine Besylate (Norvasc Tab*) 10 mg PO DAILY [facility] Last Admin: 11/26/17 07:36 Dose: 10 mg Aspirin (Aspirin Ec Tab*) 81 mg PO DAILY [facility] Last Admin: 11/26/17 07:39 Dose: 81 mg Atorvastatin Calcium (Lipitor*) 40 mg PO DAILY [facility] Last Admin: 11/26/17 07:38 Dose: 40 mg Carvedilol (Coreg Tab*) 25 mg PO BID [facility] Last Admin: 11/26/17 07:39 Dose: 25 mg Docusate Sodium (Colace Cap*) 100 mg PO BID [facility] Last Admin: 11/26/17 07:35 Dose: 100 mg Furosemide (Lasix Tab*) 20 mg PO DAILY [facility] Last Admin: 11/26/17 07:35 Dose: 20 mg Levetiracetam (Keppra Tab*) 500 mg PO BID [facility] Last Admin: 11/26/17 07:38 Dose: 500 mg Losartan Potassium (Cozaar Tab*) 25 mg PO DAILY [facility] Last Admin: 11/26/17 07:38 Dose: 25 mg Polyvinyl Alcohol (Polyvinyl Alcohol 1.4% Opth*) 1 drop LEFT EYE QID [facility] Last Admin: 11/26/17 07:41 Dose: 1 drop Potassium Chloride (Klor-Con Liquid*) 20 meq PO DAILY [facility] Sertraline HCl (Zoloft*) 100 mg PO QPM [facility] Last Admin: 11/25/17 21:03 Dose: 100 mg Sodium Chloride (Sodium Chloride 0.65% Nasal [place]*) 1 spray BOTH NARES Q4H PRN PRN Reason: CONGESTION Sodium Chloride (Hypertonic) (Cha 128 Opth 2% Debo*) 1 drop RIGHT EYE QAM [facility] Last Admin: 11/26/17 07:40 Dose: 4 applic Vital Signs - 8 hr 11/26/17 11/26/17 11/26/17 04:02 07:21 08:00 Temperature 98.3 F 97.9 F Pulse Rate 77 81 Respiratory 20 24 16 Rate Blood Pressure 138/48 157/66 (mmHg) O2 Sat by Pulse 92 97 Oximetry 11/26/17 11:16 Temperature 98.9 F Pulse Rate 65 Respiratory 24 Rate Blood Pressure 122/63 (mmHg) O2 Sat by Pulse 94 Oximetry Oxygen Devices in Use Now: None Appearance: alert, no distress, pleasant and comfortable Eyes: - - left periorbital edema Ears/Nose/Mouth/Throat: NL Teeth, Lips, Gums Neck: NL Appearance and Movements; NL JVP Respiratory: Symmetrical Chest Expansion and Respiratory Effort Cardiovascular: - - systolic murmur over RUSB, occasional ectopy, healed sternotomy Abdominal: NL Sounds; No Tenderness; No Distention, - - groin incisions well healed Lymphatic: No Cervical Adenopathy Extremities: - - 1+ le edema Neurological: Alert and Oriented x 3 Result Diagrams: 11/25/17 07:40 11/25/17 13:49 Microbiology and Other Data: Microbiology 11/25/17 03:12 Nasal Screen MRSA (PCR)(CASSIUS) - Final Nasal Mrsa Not Detected Assess/Plan/Problems-Billing Assessment: 71 yo female with recent endovascular graft repair of a thoracic aortic aneurysm admitted after a fall and found to have an orbital fracture and small SAH vs. contusion. - Patient Problems (1) History of endovascular stent graft for abdominal aortic aneurysm Current Visit: Yes Status: Acute Code(s): Z95.828 - PRESENCE OF OTHER VASCULAR IMPLANTS AND GRAFTS SNOMED Code(s): 657642748680881 Comment: This was done in August 2017; given the recent stenting, I would like to resume the plavix soon, since it appears that the subarachnoid hemorrhage/contusion is stable--I will discuss this with NSG. She should be monitored with neuro checks when resumed. I discussed her case with vascular surgery at [facility] and they agreed. (2) Fall Current Visit: Yes Status: Acute Comment: mechanical no events on tele I agree with a PT consult (3) Subarachnoid hemorrhage Current Visit: Yes Status: Acute Code(s): I60.9 - NONTRAUMATIC SUBARACHNOID HEMORRHAGE, UNSPECIFIED SNOMED Code(s): 918212000 Comment: plavix has been on hold and CT has been stable; resume today as above (4) Orbital fracture Current Visit: Yes Status: Acute Code(s): S02.80XA - FX OTH SKULL AND FACIAL BONES, UNSPECIFIED SIDE, INIT SNOMED Code(s): 99644513 Comment: evaluated by ophthalmology; poor prognosis for regaining vision (5) History of aortic valve replacement Current Visit: Yes Status: Acute Code(s): Z95.2 - PRESENCE OF PROSTHETIC HEART VALVE SNOMED Code(s): 3644215833075 Comment: porcine (6) Pleural effusion Current Visit: No Status: Acute Code(s): J90 - PLEURAL EFFUSION, NOT ELSEWHERE CLASSIFIED SNOMED Code(s): 81798142 Comment: it appears this has been chronic, however she did require thoracentesis earlier this year lasix started yesterday repeat cxr today she has no O2 requirement
[2017-11-26] MEDS ORDERED: Furosemide IV* 10 MG/ML 2 ML VIAL (20 MG) IV ONE (12:22)
[2017-11-26] MEDS ORDERED: Potassium Chlor TAB* 20 MEQ TAB.ER PO SCH (12:41)
[2017-11-26] MEDS: Clopidogrel TAB* 75 MG PO SCH (12:52)
[2017-11-26] MEDS: Potassium Chlor TAB* 20 MEQ TAB.ER PO SCH (13:17)
[2017-11-26] MEDS: Sertraline* 100 MG TAB PO SCH (17:03)
[2017-11-27] MEDS: Acetaminophen TAB* 325 MG PO PRN (01:14)
[2017-11-27] MEDS: Saline NASAL SPRAY 0.65%* BTL BOTH NARES PRN ×2 (01:15→08:51)
[2017-11-27 05:25] LABS: ABS Basophils 0 10^3/ul (0-0.2); ABS Eosinophils 0.2 10^3/ul (0-0.6); ABS Lymphocytes 1.3 10^3/ul (1.0-4.8); ABS Monocytes 0.6 10^3/ul (0-0.8); ABS Nucleated RBC 0 10^3/ul; Eosinophil % 2.5 % (0-6); Hematocrit 30 % (35-47); Hemoglobin 9.5 g/dl (12.0-16.0); Mean Corpuscular HGB Conc 32 g/dl (31-36); Mean Corpuscular Hemoglobin 23 pg (27-31); Mean Corpuscular Volume 72 fL (80-97); Mean Platelet Volume 8.2 um3 (7.4-10.4); Nucleated Red Blood Cells % 0; Platelet Count 245 10^3/ul (150-450); Red Blood Count 4.11 10^6/ul (4.0-5.4); Red Cell Distribution Width 19 % (10.5-15); White Blood Count 7.1 10^3/ul (3.5-10.8)
[2017-11-27 05:35] LABS: EGFR Non-African American 85.1 (>60)
[2017-11-27] MEDS: Atorvastatin* 40 MG TAB PO SCH (08:49)
[2017-11-27] MEDS: Docusate CAP* 100 MG PO SCH (08:49)
[2017-11-27] MEDS: Clopidogrel TAB* 75 MG PO SCH (08:49)
[2017-11-27] MEDS: Losartan TAB* 25 MG PO SCH (08:50)
[2017-11-27] MEDS: Potassium Chlor TAB* 20 MEQ TAB.ER PO SCH (08:50)
[2017-11-27] MEDS: Aspirin EC TAB* 81 MG TAB.EC PO SCH (08:50)
[2017-11-27] MEDS: amLODIPine TAB* 5 MG PO SCH (08:50)
[2017-11-27] MEDS: levETIRAcetam TAB* 500 MG PO SCH (08:50)
[2017-11-27] MEDS: Carvedilol TAB* 25 MG PO SCH (08:50)
[2017-11-27] MEDS: Sodium Chloride 2% OPTH.SOL* 15 ML BTL RIGHT EYE SCH (08:52)
[2017-11-27] MEDS: Artificial Tears* 15 ML BTL LEFT EYE SCH ×2 (08:53→12:59)
--- NOTE | 2017-11-27 10:38 | PN ---
Progress Note - Progress Note Date of Service: 11/27/17 SOAP: Subjective: []No events ON. Lt periorbital echymoses, improved. Ambulates, Voids, Tolerates PO well. Lt eye vision stable, possibly midly improved per patient. Objective: []VSS AAOx3, KELSEY, CN II-XII grossly intact, except decreased vision left eye. Difficult to assess optic lozano, can count fingers with left eye in upper, medial optical lozano. Motor 5/5 all extremities, no pronator drift. Sensory grossly intact to light touch. DTR +1 bilaterally Assessment: []71 yof fall, small left F/T contusion vs SAH. Lt orbital fracture Plan: [] Patient was seen earlier today. periorbital edema per patient. No complains of LOC, No JIMENES, No episode of JIMENES prior to her fall. Patient described that she fell in her porch, because 'her legs gave out". Patient reported that was not able to see from her left eye since the fall. She noticed it the day of the fall, one day prior to her presentation in the hospital. No complains of neck or back pain. Objective: [] No tenderness to palpation cervical, thoracic or lumbar spine. Free ROM cervical spine. Assessment: []Monitor VS, Neurochecks SZ prophylaxis for [address] yest stable, CTA no evidence of aneurysm, AVM. Ideally hold off anticoagulations for 4 weeks if medically possible. Given the need for anticoagulation per IM/vascular and the small, stable contusion/SAH, it may be acceptable to start earlier. Follow up in office in [address] head. Appreciate IM/Opthalmology care. Edil Arriaga MD
[2017-11-27 15:36] VITALS: BP 135/66
--- NOTE | 2017-11-27 16:35 | PN ---
Subjective Date of Service: 11/27/17 Interval History: Ms Chavarria reports feeling well this afternoon and that she is eager for discharge. She reports persistent decreased vision in her left eye but no other deficits. She denies chest pain, SOB, nausea, or abdominal pain. Objective Active Medications: Acetaminophen (Tylenol Tab*) 650 mg PO Q4H PRN Alprazolam (Xanax Tab*) 0.25 mg PO BID PRN Amlodipine Besylate (Norvasc Tab*) 10 mg PO DAILY [facility] Aspirin (Aspirin Ec Tab*) 81 mg PO DAILY [facility] Atorvastatin Calcium (Lipitor*) 40 mg PO DAILY [facility] Carvedilol (Coreg Tab*) 25 mg PO BID [facility] Clopidogrel Bisulfate (Plavix Tab*) 75 mg PO DAILY [facility] Docusate Sodium (Colace Cap*) 100 mg PO BID [facility] Levetiracetam (Keppra Tab*) 500 mg PO BID [facility] Losartan Potassium (Cozaar Tab*) 25 mg PO DAILY [facility] Polyvinyl Alcohol (Polyvinyl Alcohol 1.4% Opth*) 1 drop LEFT EYE QID [facility] Potassium Chloride (Klor Con Er Tab*) 20 meq PO DAILY@0900 [facility] Sertraline HCl (Zoloft*) 100 mg PO QPM [facility] Sodium Chloride (Sodium Chloride 0.65% Nasal [place]*) 1 spray BOTH NARES Q4H PRN Sodium Chloride (Hypertonic) (Cha 128 Opth 2% Debo*) 1 drop RIGHT EYE QAM [facility] Vital Signs: Temp Pulse Resp BP Pulse Ox 100.0 F 73 18 135/66 98 11/27/17 15:30 11/27/17 15:30 11/27/17 15:30 11/27/17 15:30 11/27/17 15:30 Oxygen Devices in Use Now: None Appearance: Female lying in bed in NAD Respiratory: Symmetrical Chest Expansion and Respiratory Effort, Clear to Auscultation Cardiovascular: NL Sounds; No Murmurs; No JVD, No Edema Abdominal: NL Sounds; No Tenderness; No Distention Lymphatic: No Cervical Adenopathy Extremities: No Edema Skin: - - Echymoses about left eye with hemorrhagic conjunctiva Neurological: Alert and Oriented x 3, NL Muscle Strength and Tone Nutrition: Taking PO's Result Diagrams: 11/27/17 05:00 11/27/17 05:00 Microbiology and Other Data: . Assess/Plan/Problems-Billing Assessment: 71 yo female with recent endovascular graft repair of a thoracic aortic aneurysm admitted after a fall and found to have an orbital fracture and small SAH vs. contusion. - Patient Problems (1) Subarachnoid hemorrhage Comment: - Plavix resumed, no change in neuro exam. (2) Orbital fracture Comment: - evaluated by ophthalmology; poor prognosis for regaining vision - follow up 1-2 weeks (3) Fall Comment: - Mechanical - No events on tele - PT outpatient for strengthening (4) History of endovascular stent graft for abdominal aortic aneurysm Comment: - August 2017 - Plavix resumed after approval from Dr. Hahn. - Neuro checks unchanged (5) History of aortic valve replacement Comment: - porcine (6) Depression Comment: - Continue zoloft (7) Hypertension Comment: - SBP 120-130s. - Continue norvasc, carvedilol, losartan, lasix. (8) Pleural effusion Comment: - Asymptomatic. - It appears this has been chronic, however she did require thoracentesis earlier this year - Continue lasix. (9) Full code status Comment: Status and Disposition: Inpatient. DIscharge to home.
--- NOTE | 2017-11-27 23:10 | DS ---
CC: Tri Taveras MD * HOSPITAL MEDICINE DISCHARGE SUMMARY: DATE OF ADMISSION: 11/25/17 DATE OF DISCHARGE: 11/27/17 PRIMARY CARE PHYSICIAN: Tri Taveras MD ATTENDING PHYSICIAN: Doug Amin MD * (dictation provided by Anna Pro NP) PRIMARY DIAGNOSES: 1. Fall with subarachnoid hemorrhage while on Plavix. 2. Orbital fracture with eye contusion. SECONDARY DIAGNOSES: 1. History of myocardial infarction in 2013, cardiac cath at [facility] in 2013. 2. Aortic aneurysm, status post stent placement in [facility] , 08/16/17. 3. Cholecystectomy at [facility], 11/07/17. 4. Hyperlipidemia. 5. Hypertension. 6. Diverticulosis. 7. Fuchs' disease. 8. Chronic ischemic heart disease. 9. History of bowel resection. 10. Ankle fracture fixation. 11. Tonsillectomy. MEDICATIONS: At the time of discharge are: 1. Levocetirizine 500 mg p.o. b.i.d. x6 days. 2. Potassium chloride 20 mEq p.o. daily (new medication). 3. Sodium chloride eyedrops to right eye every 50 minutes as needed. 4. Amlodipine 10 mg p.o. q.a.m. 5. Losartan 25 mg p.o. q.a.m. 6. Clopidogrel 75 mg p.o. q.a.m. 7. Carvedilol 25 mg p.o. b.i.d. 8. Aspirin 81 mg p.o. q.a.m. 9. Docusate 100 mg p.o. daily. 10. Atorvastatin 40 mg p.o. daily. 11. Sertraline 100 mg p.o. daily. HOSPITAL COURSE: Ms. Chavarria is a 71-year-old female with a complicated past medical history including a recent aortic aneurysm stent in August 2017 and cholecystectomy in October 2017, who presented to the hospital on 11/25/17 after a fall at home. Please see the dictated H and P from FAUZIA Lane, for complete details. In brief, the patient stated that she had fallen at home when trying to step up to her deck and finding that her legs were too weak to support her weight. She states that this was a purely mechanical fall. She landed on her left side of her face and had immediate significant pain as well as difficulty seeing from the left eye. She took 2 oxycodone and fell asleep. The next day, she presented to the emergency room for evaluation. In the ED, she had a CT of the brain that showed "a small amount of increased attenuation along the left sylvian fissure which may represent a small amount of subarachnoid hemorrhage and/or parenchymal contusion. There is no shift." The patient was seen immediately by FAUZIA, Kathleen Byrd, from Dr. Arriaga' service from the neurosurgical team. They recommended that the patient be admitted to the ICU with q.2 neuro checks and have a repeat CT brain and cervical spine the following day. Ms. Chavarria went on for a CT brain on 11/25/17, which again noted is a small amount of high attenuation material along the left sylvian fissure suggestive of small amount of subarachnoid hemorrhage versus parenchymal contusion. This is slightly decreased from the 11/24/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 No acute osseous injury to the cervical spine, large bilateral pleural effusions with pulmonary interstitial edema." In addition to being seen by the neurosurgical team, the patient was also seen by Dr. Carrizales from the design inserter due to decreased vision and elida conjunctival hemorrhage to the left eye. 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 He recommended that she come to his office for followup in 1 to 2 weeks. He recommended that she keep the head of bed elevated for 30 degrees for 48 hours and avoid bending over or strenuous activity. He hoped that we could avoid blood thinners, but in light of her recent aortic stenting, those needed to be restarted. was observed and had repeat CT scan that showed a stable subarachnoid hemorrhage. All of this was reviewed with the patient's surgeon at the [facility] as well as with Dr. Arriaga and Dr. Carrizales from the ophthalmology team. Due to the fact that she has a recent stent placement, she did need to be continued on Plavix and this was resumed on . The patient was monitored for 24 hours after resumption of Plavix with absolutely no change in her neurological examination. She has been seen again by Dr. Arriaga today, who agrees that she is medically stable for discharge to home for close followup with these multiple providers. Ms. Chavarria will be continued on seizure prophylaxis for 1 week per the recommendation of Dr. Arriaga. Per the recommendations from Dr. Carrizales, the patient has been instructed to not bend over and to avoid strenuous activity until she follows up with him. She has also been recommended to not blow her nose for 1 week and to use saline nasal spray only for 1 week. DISPOSITION: To home. DIET: Low fat, low salt. ACTIVITY: As noted above. FOLLOWUP PLANS: 1. Please follow up with Dr. Carrizales in 1 to 2 weeks. 2. Please follow up with Dr. Arriaga in [address] brain. 3. Please follow up with Dr. Taveras in the next 1 to 2 weeks regarding this acute hospitalization. 4. Please follow up with the basic metabolic panel to check potassium level, which was slightly low during this hospitalization requiring supplementation on 12/01/17. TIME SPENT: Approximately, 60 minutes were spent on the discharge of this patient, more than half the time was spent with the patient at the bedside reviewing the events leading up to this hospitalization, performing the physical examination, and reviewing my plan of care. ANNA PRO NP [id number]/[facility] #: [id number] PADMINI
== END 2017-11-27 16:00 | disposition home health service (06) | DRG 55 ==
LOC: ED 20:31 → ICU 11-25 02:16 → MEDTELE 11-25 16:35
PROVIDERS: ADMIT Neurological Surgery; ATTEND Student in an Organized Health Care Education/Training Program
DX: S06.6X0A Traumatic subarachnoid hemorrhage without loss of consciousness, initial encounter (principal); J90 Pleural effusion, not elsewhere classified; H46.8 Other optic neuritis; J81.1 Chronic pulmonary edema; S02.32XA Fracture of orbital floor, left side, initial encounter for closed fracture; S05.12XA Contusion of eyeball and orbital tissues, left eye, initial encounter; E78.5 Hyperlipidemia, unspecified; I10 Essential (primary) hypertension; K57.90 Diverticulosis of intestine, part unspecified, without perforation or abscess without bleeding; F41.9 Anxiety disorder, unspecified; G43.909 Migraine, unspecified, not intractable, without status migrainosus; H57.8 Other specified disorders of eye and adnexa; I48.91 Unspecified atrial fibrillation; H05.222 Edema of left orbit; H54.62 Unqualified visual loss, left eye, normal vision right eye; G47.30 Sleep apnea, unspecified; F32.9 Major depressive disorder, single episode, unspecified; H11.32 Conjunctival hemorrhage, left eye; I25.10 Atherosclerotic heart disease of native coronary artery without angina pectoris; W18.30XA Fall on same level, unspecified, initial encounter; J30.2 Other seasonal allergic rhinitis; I25.9 Chronic ischemic heart disease, unspecified; M40.40 Postural lordosis, site unspecified; M47.892 Other spondylosis, cervical region; H91.90 Unspecified hearing loss, unspecified ear; Z97.4 Presence of external hearing-aid; Z87.891 Personal history of nicotine dependence; Z72.89 Other problems related to lifestyle; Z88.5 Allergy status to narcotic agent; I25.2 Old myocardial infarction; Z90.49 Acquired absence of other specified parts of digestive tract; Z88.2 Allergy status to sulfonamides; Z88.8 Allergy status to other drugs, medicaments and biological substances; Z95.3 Presence of xenogenic heart valve; Z82.49 Family history of ischemic heart disease and other diseases of the circulatory system; Z98.42 Cataract extraction status, left eye; Y92.008 Other place in unspecified non-institutional (private) residence as the place of occurrence of the external cause; Z95.828 Presence of other vascular implants and grafts; Z79.02 Long term (current) use of antithrombotics/antiplatelets; Z79.82 Long term (current) use of aspirin
CPT/HCPCS: 36415; 70450; 70486; 70496; 70498; 71045; 72125; 80048; 80053; 82728; 83540; 83550; 83735; 83880; 85025; 85060; 85610; 85730; 87641; 99291; A9270-GY; G8978-GP-CI; G8979-GP-CI; G8980-GP-CI; J1940; J2543; J3475; J3480; Q9967

== ENCOUNTER 2018-01-24 13:21 | Inpatient (IN) | payer BC, MEDICARE ==
--- NOTE | 2018-01-24 14:10 | ED ---
Shortness of Breath - HPI Summary HPI Summary: This is scribe Giovanny Batista documenting for attending Chandana Wood M.D. Patient is a 72 y/o F w/ c/o SOB and weakness. Patient reports Hx of SOB for "a long time" and notes this episode of SOB onset yesterday afternoon. SOB is noted to occur in episodes, coming and going. Patient notes that she has been breathing very shallowly. Deep breaths only provide temporary relief to Sx. She denies chest pain but notes some chest pressure. Fever and chills are denied. A cough is present but it is non-productive. She notes presence of phlegm in throat. Patient also reports some LE edema this morning which has since resolved. On triage, Hx of CHF is listed and pain is rated 4/10. PSHx of abdominal aneurysm surgery and gallbladder surgery is noted. Home medications and allergies are noted. - History of Current Complaint Chief Complaint: EDShortnessOfBreath Time Seen by Provider: 01/24/18 14:02 Hx Obtained From: Patient Onset/Duration: Lasting Days - episode onset yesterday afternoon Timing: Constant Current Severity: Mild Alleviating Factors: Other - deep breaths provide temporary relief Associated Signs & Symptoms: Cough (Nonproductive), Edema - present in morning, since resolved - Allergy/Home Medications Allergies/Adverse Reactions: Allergies Allergy/AdvReac Type Severity Reaction Status Date / Time lisinopril Allergy Coughing Verified 01/24/18 13:28 morphine Allergy Vomiting Verified 01/24/18 13:28 Sulfa (Sulfonamide Allergy Unknown Verified 01/24/18 13:28 Antibiotics) Reaction Details Home Medications: Home Medications Aspirin EC TAB* [Ecotrin EC Low Dose 81 MG*] 81 mg PO DAILY 01/24/18 [History Confirmed 01/24/18] Atorvastatin* [Lipitor*] 40 mg PO DAILY 01/24/18 [History Confirmed 01/24/18] Clopidogrel TAB* [Plavix TAB*] 75 mg PO DAILY 01/24/18 [History Confirmed ] Docusate CAP* [Colace Cap*] 100 mg PO DAILY PRN 01/24/18 [History Confirmed ] Ferrous Sulfate TAB* 325 mg PO .TWO-THREETIMESAWEEK 01/24/18 [History Confirmed 01/24/18] Furosemide TAB* [Lasix TAB*] 20 mg PO MOWEFR 01/24/18 [History Confirmed ] Losartan TAB* [Cozaar TAB*] 100 mg PO DAILY 01/24/18 [History Confirmed 01/24/18 ] Metoprolol Succinate XL TAB* [Toprol XL TAB*] 25 mg PO BID 01/24/18 [History Confirmed 01/24/18] Sertraline* [Zoloft*] 100 mg PO DAILY 01/24/18 [History Confirmed 01/24/18] Spironolactone TAB* [Aldactone TAB*] 25 mg PO DAILY 01/24/18 [History Confirmed 01/24/18] PMH/Surg Hx/FS Hx/Imm Hx Endocrine/Hematology History: Denies: Hx Anticoagulant Therapy, Hx Blood Disorders, Hx Blood Transfusions, Hx Bone Marrow Disease, Hx Diabetes, Hx Systemic Lupus Erythematosus, Hx Sickle Cell Disease, Hx Thyroid Disease, Hx Anemia, Hx Unexplained Bleeding, Other Endocrine/Hematological Disorders Cardiovascular History: Reports: 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 , Hx Angina, Hx Coronary Artery Disease, Hx Hypercholesterolemia, Hx Hypertension - on meds Denies: Hx Angioplasty, Hx Auto Implanted Cardiovert Defib, Hx Cardiac Arrest , Hx Cardiomegaly, Hx Congenital Heart Disease, Hx Congestive Heart Failure, Hx Deep Vein Thrombosis, Hx Embolism, Hx Hypotension, Hx Pacemaker/ICD, Hx Peripheral Vascular Disease, Hx Rheumatic Fever, Hx Syncope, Hx Valvular Heart Disease Comment Only: Other Cardiovascular Problems/Disorders - AORTIC ANEURISM REPAIR Respiratory History: Reports: Hx Seasonal Allergies - current CPAP user, Hx Sleep Apnea - current BiPAP user, Other Respiratory Problems/Disorders - sleep apnea cpap Denies: Hx Asthma, Hx Chronic Bronchitis, Hx Chronic Obstructive Pulmonary Disease (COPD), Hx Cystic Fibrosis, Hx Lung Cancer, Hx Pleural Effusion, Hx Pneumonia, Hx Pulmonary Edema, Hx Pulmonary Embolism GI History: Denies: Hx Cirrhosis, Hx Crohn's Disease, Hx Diverticulosis, Hx Gall Bladder Disease, Hx Gastroesophageal Reflux Disease, Hx Gastrointestinal Bleed, Hx Hiatal Hernia, Hx Irritable Bowel, Hx Jaundice, Hx Obstructive Bowel, Hx Ileostomy, Hx Pyloric Stenosis, Hx Ulcer, Other GI Disorders History: Denies: Hx Acute Renal Failure, Hx Benign Prostatic Hyperplasia, Hx Chronic Renal Failure, Hx Dialysis, Hx Kidney Infection, Hx Kidney Stones, Other Problems/Disorders Musculoskeletal History: Denies: Hx Arthritis, Hx Back Problems, Hx Bursitis, Hx Congenital Bone Abnormalities, Hx Fibromyalgia, Hx Gout, Hx Orthopedic Injury, Hx Osteoporosis, Hx Scoliosis, Hx Tendonitis, Other Musculoskeletal History Sensory History: Reports: Hx Vision Problem, Hx Hearing Problem Denies: Hx Cataracts, Hx Contacts or Glasses, Hx Eye Injury, Hx Eye Prosthesis, Hx Glaucoma, Hx Legally Blind, Hx Macular Degeneration, Hx Deafness , Hx Hearing Aid, Other Sensory Impairments Opthamlomology History: Reports: Hx Vision Problem Denies: Hx Cataracts, Hx Contacts or Glasses, Hx Eye Injury, Hx Eye Prosthesis, Hx Glaucoma, Hx Legally Blind, Hx Macular Degeneration, Other Sensory Impairments Neurological History: Reports: Hx Headaches, Hx Migraine Denies: Hx Dementia, Hx Developmental Delay, Hx Nerve Disease, Hx Seizures, Hx Spinal Cord Injury, Hx Transient Ischemic Attacks (TIA), Other Neuro Impairments/Disorders Psychiatric History: Reports: Hx Anxiety, Hx Depression Denies: Hx Attention Deficit Hyperactivity Disorder, Hx Eating Disorder, Hx Panic Disorder, Hx Post Traumatic Stress Disorder, Hx Inpatient Treatment, Hx Community Mental Health Tx, Hx Schizophrenia, Hx Bipolar Disorder, Hx Suicide Attempt, Hx of Violent Episodes Against Others, Hx Substance Abuse, Other Psychiatric Issues/Disorders - Surgical History Surgery Procedure, Year, and Place: 1998 [facility]-bowel resection. 1999 [facility]-(left) ankle FX+repair. 1961 tonsils. dental surgeries cardiac surgeries, cardiac aneurysm x 3,isabel Hx Anesthesia Reactions: No - Immunization History Date of Tetanus Vaccine: unk Date of Influenza Vaccine: fall 2016 Infectious Disease History: No Infectious Disease History: Denies: Hx Clostridium Difficile, Hx Hepatitis - Hepatitis as a child, Hx Human Immunodeficiency Virus (HIV), Hx of Known/Suspected MRSA, Hx Shingles, Hx Tuberculosis, Hx Known/Suspected VRE, Hx Known/Suspected VRSA, History Other Infectious Disease, Traveled Outside the [place] in Last 30 Days - Family History Known Family History: Positive: Hypertension - Social History Alcohol Use: Rare Alcohol Amount: 2-3 glasses of wine/day, not every day Substance Use Type: Reports: None Smoking Status (MU): Former Smoker Type: Cigarettes Amount Used/How Often: 1 or 2 cigarettes/day Have You Smoked in the Last Year: No Review of Systems Negative: Fever, Chills Positive: Other - congestion in throat Positive: Other - chest pressure . Negative: Chest Pain Positive: Shortness Of Breath, Cough - non-productive Positive: Edema - LE edema, resolved All Other Systems Reviewed And Are Negative: Yes Physical Exam - Summary Physical Exam Summary: GENERAL: Patient is an elderly female who is lying comfortable in the stretcher. Patient is not in any acute respiratory distress. HEAD AND FACE: No signs of trauma. No ecchymosis, hematomas or skull depressions. No sinus tenderness. EYES: PERRLA, EOMI x 2, No injected conjunctiva, no nystagmus. EARS: Hearing grossly intact. Ear canals and tympanic membranes are within normal limits. MOUTH: Oropharynx within normal limits. NECK: Supple, trachea is midline, no adenopathy, no JVD, no carotid bruit, no c- spine tenderness, neck with full ROM. CHEST: Symmetric, no tenderness at palpation LUNGS: Coarse sounds but sounds bilaterally, some crackles in bases of the lungs. CVS: Regular rate and rhythm, S1 and S2 present, no murmurs or gallops appreciated. ABDOMEN: Soft, non-tender. No signs of distention. No rebound no guarding, and no masses palpated. Bowel sounds are normal. EXTREMITIES: FROM in all major joints, no edema, no cyanosis or clubbing. NEURO: Alert and oriented x 3. No acute neurological deficits. Speech is normal and follows commands. SKIN: Dry and warm Triage Information Reviewed: Yes Vital Signs On Initial Exam: Initial Vitals Temp Pulse Resp BP Pulse Ox 98.4 F 84 22 158/85 95 01/24/18 13:25 01/24/18 13:25 01/24/18 13:25 01/24/18 13:25 01/24/18 13:25 Vital Signs Reviewed: Yes Diagnostics - Vital Signs Vital Signs Temp Pulse Resp BP Pulse Ox 01/24/18 13:25 98.4 F 84 22 158/85 95 - Laboratory Result Diagrams: 01/24/18 13:54 01/24/18 13:47 Lab Statement: Any lab studies that have been ordered have been reviewed, and results considered in the medical decision making process. - Radiology CXR Radiology Interpretation Completed By: Radiologist - #. Unchanged small RIGHT dependent pleural effusion and basilar atelectasis. #. Stigmata of chronic obstructive pulmonary disease. #. Unchanged appearance and position of the thoracic and abdominal aortic stent. Unchanged prominent and tortuous contour of the thoracic aorta. #. Cardiomegaly without evidence for pulmonary edema. This report was reviewed by ED physician. - EKG 1503 Cardiac Rate: NL - Rate of 88 BPM EKG Rhythm: Sinus Rhythm EKG Interpretation: No ST elevations. Re-Evaluation - Re-Evaluation First Eval Re-Evaluation Time: 16:07 Comment: Discussed care of patient and results of tests. Informed patient will be admitted to [facility] for further work-up. Course/Dx - Course Assessment/Plan: This patient is a 72-year-old female who presents to the emergency department with a chief complaint of shortness of breath. She reports that she usually short of breath however since last night the shortness of breath worsen. She denies any fever, denies any chills, positive dry cough and no chest pain. Patient reports that this morning called Dr. Carpio who is the case was patient and increase the Lasix and the bilateral extremity edema improved. However she continues to have some shortness of breath. Patient has past medical history significant pleural effusion, hypertension, subarachnoid hemorrhage, thoracic and abdominal ultrasound was status post repair, and CHF. Patient also has history of seizures. Blood test results without any significant abnormality except for hemoglobin 10.4 hematocrit 32, MCV is 73. Potassium is 3.2, for which the patient was given potassium chloride. Glucose is 121, troponin 0.05 and CRP is 40.9. And BNP of 3267. Since the patient has an increased troponin I gave the patient ASA. EKG shows a normal sinus rhythm at [address] elevations. I discussed the physical exam and findings with Dr. White from the hospitalist services was sent to the patient for admission since the patient has an increase troponin to rule out acute coronary syndrome and also for the increased BMP and exacerbation of CHF. The daughter accepted the patient for admission. She will order Lasix for this patient. At this time the patient is hemodynamically stable alert and 3. - Diagnoses Provider Diagnoses: CHF exacerbation, Elevated troponin - Physician Notifications Discussed Care of Patient With: Rose White Time Discussed With Above Provider: 16:00 Instructed by Provider To: Other - 16:00 -- Dr. White was consulted with regards to this case. Dr. White agrees to accept patient for admission to [facility]. Discharge - Sign-Out/Discharge Documenting (check all that apply): Patient Departure - admit - Discharge Plan Condition: Fair Disposition: ADMITTED TO [facility]
[2018-01-24 14:11] LABS: ABS Basophils 0.1 10^3/ul (0-0.2); ABS Eosinophils 0.1 10^3/ul (0-0.6); ABS Lymphocytes 0.8 10^3/ul (1.0-4.8); ABS Monocytes 0.8 10^3/ul (0-0.8); ABS Nucleated RBC 0 10^3/ul; Eosinophil % 0.7 % (0-6); Hematocrit 32 % (35-47); Hemoglobin 10.4 g/dl (12.0-16.0); Lymphocyte % 8.6 % (25-47); Mean Corpuscular HGB Conc 32 g/dl (31-36); Mean Corpuscular Hemoglobin 24 pg (27-31); Mean Corpuscular Volume 73 fL (80-97); Mean Platelet Volume 8.7 um3 (7.4-10.4); Nucleated Red Blood Cells % 0.1; Platelet Count 247 10^3/ul (150-450); Red Blood Count 4.43 10^6/ul (4.00-5.40); Red Cell Distribution Width 20 % (10.5-15); White Blood Count 9.8 10^3/ul (3.5-10.8)
[2018-01-24 14:24] LABS: INR 1.21 (0.77-1.02)
[2018-01-24 14:29] LABS: EGFR Non-African American 60.6 (>60)
[2018-01-24] MEDS ORDERED: Aspirin 81 mg CHEW TAB* 81 MG TAB.CHEW PO ONE (15:19)
[2018-01-24] MEDS ORDERED: Potassium Chlor TAB* 20 MEQ TAB.ER PO ONE (15:19)
--- NOTE | 2018-01-24 15:43 | RAD ---
INDICATION: Chest pain. Shortness of breath. Previous aortic aneurysm repair. History of sleep apnea. COMPARISON: November 26, 2017 TECHNIQUE: Dual energy PA and routine lateral views of the chest were obtained. REPORT: Mild prominence of interstitial markings without change. Small dependent RIGHT pleural effusion and basilar atelectasis without significant change. Clear LEFT lung and pleural space. Negative for pneumothorax. Unchanged cardiomegaly. Unchanged appearance and position of the thoracic and abdominal aortic stent. Unchanged prominent and tortuous contour of the thoracic aorta. Unremarkable central pulmonary vasculature. IMPRESSION: #. Unchanged small RIGHT dependent pleural effusion and basilar atelectasis. #. Stigmata of chronic obstructive pulmonary disease. #. Unchanged appearance and position of the thoracic and abdominal aortic stent. Unchanged prominent and tortuous contour of the thoracic aorta. #. Cardiomegaly without evidence for pulmonary edema.
[2018-01-24] MEDS ORDERED: Docusate CAP* 100 MG PO PRN (17:13)
--- NOTE | 2018-01-24 18:23 | RAD ---
INDICATION: Elevated liver function tests. COMPARISON: Correlation is made with a prior CT angiogram of the abdomen and pelvis from August 07, 2017. TECHNIQUE: Multiple real-time images of the right upper quadrant were obtained. FINDINGS: The gallbladder is contracted limiting the study. No gallstones are seen. There is a 4 mm gallbladder wall polyp. No gallbladder wall thickening or positive sonographic Apodaca sign was present. No intra or extrahepatic ductal distention is present. The common bile duct measured 0.4 cm in diameter. The liver is mild to moderately enlarged without significant focal abnormality. The pancreas is partially obscured by overlying bowel gas. The right kidney is normal in size without evidence for hydronephrosis. There is a small to moderate size right pleural effusion. IMPRESSION: 1. RIGHT PLEURAL EFFUSION. 2. SMALL GALLBLADDER WALL POLYP. 3. [id number] HEPATOMEGALY.
[2018-01-24] MEDS: Furosemide IV* 10 MG/ML VIAL (40 MG) IV SLOW PU SCH (19:40)
[2018-01-24] MEDS: Heparin VIAL(*) 5000 UNITS/ML VIAL (FIVE THOUSAND) SUBCUT SCH (20:36)
[2018-01-24] MEDS: Metoprolol Succinate XL TAB* 25 MG PO SCH (20:36)
--- NOTE | 2018-01-24 21:40 | HP ---
CC: Dr. Taveras; Dr. Carpio * HISTORY AND PHYSICAL: DATE OF ADMISSION: 01/24/18 PRIMARY CARE PROVIDER: Dr. Taveras. KEYBOARDING CLERK: Dr. Carpio. CHIEF COMPLAINT: Shortness of breath. HISTORY OF PRESENT ILLNESS: Ms. Chavarria is a 72-year-old female who has a complicated medical history significant for coronary artery disease with past PR and resultant ischemic cardiomyopathy, thoracic and aortic aneurysm, status post repair with bioprosthetic aortic valve, who presents to the emergency room with complaints of shortness of breath. The patient states that in August 2017, she underwent abdominal aortic aneurysm surgery at [facility]. In August 2017, she underwent cholecystectomy. Later in August 2017, she sustained a fall with subarachnoid hemorrhage and lost vision in her left eye. She states since her abdominal aortic aneurysm repair, she has not been feeling well. She states that she feels very weak. She describes shortness of breath. In general, the patient is somewhat of a difficult historian to pull out specific details from. She does state that she feels short of breath and very fatigued with any exertion. She also states that she has had significant paroxysmal nocturnal dyspnea. That has been her biggest issue most recently. When asked why she presented to the emergency room today as opposed to any other day, she states that she had such a terrible night last night that she decided to come and to be seen. She states that she spent at least half of the night sitting on the edge of the bed trying to catch her breath. PAST MEDICAL HISTORY: 1. PR with ischemic cardiomyopathy. 2. Combined systolic and diastolic CHF. 3. Thoracic aortic aneurysm, status post bioprosthetic aortic valve replacement and repair of the aneurysm. 4. Abdominal aortic aneurysm, status post stent placement, August 2017. 5. Hyperlipidemia. 6. Hypertension. 7. Fuchs' disease. 8. Subarachnoid hemorrhage with left eye vision loss, October 2017. PAST SURGICAL HISTORY: 1. Thoracic aortic aneurysm repair with bioprosthetic aortic valve placement. 2. Abdominal aortic aneurysm repair with stent placement. 3. Cholecystectomy. 4. Bowel resection. 5. Ankle fracture fixation. 6. Tonsillectomy. 7. Bilateral cataract extractions. MEDICATIONS: 1. Lasix 20 mg p.o. Monday, Monday, Monday. 2. Ferrous sulfate 325 mg p.o. 2 to 3 times a week. 3. Colace 100 mg p.o. daily p.r.n. constipation. 4. Spironolactone 25 mg p.o. daily. 5. Sertraline 100 mg p.o. daily. 6. Lipitor 40 mg p.o. daily. 7. Aspirin 81 mg p.o. daily. 8. Metoprolol XL 25 mg p.o. b.i.d. 9. Losartan 100 mg p.o. daily. 10. Plavix 75 mg p.o. daily. ALLERGIES: LISINOPRIL, SULFA, and MORPHINE. FAMILY HISTORY: The patient's mom of emphysema. Dad of heart issues. SOCIAL HISTORY: The patient has smoked socially, approximately 1 pack per month for many years, however, last did so in 2012. She denies any recent alcohol use. 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 She is . She has 3 children. She indicates that her son, Codey, would be her healthcare proxy. REVIEW OF SYSTEMS: The patient denies any fevers or chills. She states her appetite has been poor due to metallic taste in her mouth since surgery. She admits to chest discomfort when she has difficult time breathing. She states that her legs are not very edematous at this point, though they have been recently. She admits to cough and coughing spells. She admits to the shortness of breath as above. No sputum production. She admits to nausea. She does state that she has been having 5 loose stools per day. No abdominal pain. No hematochezia, no hematuria, no dysuria. She states that she has chronic right arm tingling. She lost vision in her left eye following a subarachnoid hemorrhage. She denies any dysphagia, but again admits to a bad taste in her mouth. No joint pains or muscle pains out of ordinary. No rashes. She does feel depressed about her current situation. PHYSICAL EXAMINATION GENERAL: The patient is a well-developed, elderly female seen sitting in the stretcher, in no acute distress. VITAL SIGNS: Blood pressure 158/85, pulse 84, respirations 22, temp 98.4, O2 sat 95% on room air. HEENT: Pupils are equal and round. There is evidence of prior cataract extraction. Extraocular muscles are intact. The oropharynx is clear. Oral mucosa is moist. NECK: There is no submandibular, cervical, or supraclavicular adenopathy. Thyroid is not enlarged. No thyroid nodules noted. PULMONARY: Lungs are clear bilaterally with slight decreased breath sounds at the right base. CARDIAC: Normal S1, S2. Regular rate and rhythm. There is a 3/6 systolic murmur heard best at the right upper sternal border. There is minimal bilateral lower extremity pitting edema. ABDOMEN: Bowel sounds are present. Abdomen is soft, nontender, and nondistended. MUSCULOSKELETAL: There is no cyanosis or clubbing of the digits. There is full active range of motion of all 4 extremities. NEUROLOGIC: Cranial nerves II through XII are grossly intact. Sensation is intact to light touch throughout. Strength is 5/5 and symmetric in both upper and lower extremities bilaterally. PSYCHIATRIC: The patient is alert. She is oriented x3. Affect appears appropriate. SKIN: Warm and dry. There are no rashes. There are scattered bruises noted on the patient's arms, legs and left inner thigh. DIAGNOSTIC STUDIES/LAB DATA: WBC 9.8, hemoglobin 10.4, hematocrit 32, platelets 247. INR 1.21. Sodium 139, potassium 3.2, chloride 103, CO2 26, BUN 18, creatinine 0.91, glucose 121, lactic acid 1.3, calcium 9.4, magnesium 1.9. Bilirubin 1.0, AST 86, ALT 142, alk phos 166. Troponin 0.05. CRP 40.99. Albumin 3.8. EKG reveals normal sinus rhythm with nonspecific ST-T wave abnormalities in the lateral leads. Chest x-ray reveals unchanged small right dependent pleural effusion and basilar atelectasis, stigmata of chronic obstructive pulmonary disease, unchanged appearance and position of the thoracic and abdominal aortic stents, unchanged prominent and tortuous contour of the thoracic aorta. Cardiomegaly without evidence for pulmonary edema is noted. ASSESSMENT AND PLAN: Ms. Chavarria is a 72-year-old female, who has felt poorly since August 2017, after she underwent abdominal aortic aneurysm repair, who presents to the emergency room with complaints of severe shortness of breath for which she states that she spent most of the night sitting on the edge of the bed trying to catch her breath. 1. Dyspnea. Differential diagnosis for this would include congestive heart failure, which is likely, as the patient, as of 01/05/18 was felt to be volume overloaded per Dr. Carpio versus possible chronic obstructive pulmonary disease exacerbation, which seems less likely as the patient has not been diagnosed with chronic obstructive pulmonary disease; however, she does have smoking history versus even less likely pulmonary embolism. The patient will be admitted and aggressively diuresed. I will start Lasix 40 mg IV twice daily. This is a dramatic increase from her baseline Lasix dose of 20 mg p.o. Monday, Monday, Monday. She would likely benefit from pulmonary function testing as an outpatient. At this point, I am going to hold off on CTA of the chest as she is not tachycardic or hypoxic to make me believe that pulmonary embolism is very likely. I will order a D-dimer and if this is positive, we will obtain a CTA of the chest as she did have recent long distance travel to [facility]. 2. Hypertension. The patient's blood pressure is moderately elevated in the emergency room. She will be maintained on her usual home medication regimen. 3. Ischemic cardiomyopathy. The patient will continue on aspirin, Lipitor, metoprolol XL, and losartan. 4. History of thoracic and abdominal aortic aneurysm repairs. Continue aspirin and Plavix. 5. Hyperlipidemia. Continue Lipitor. 6. Depression. Continue Zoloft. 7. DVT prophylaxis: According to the Adult Thrombosis Prophylaxis Risk Factor Assessment Guide, the patient has a total risk factor score of 2 making her moderate risk. She will be placed on heparin 5000 units subcutaneous q.12 hours. 8. Code status is full. TIME SPENT: 70 minutes was spent admitting this patient, of which greater than half spent [id number] with the patient reviewing her history and performing a physical exam, as well as reviewing old records. [id number]/[facility] #: [id number] PADMINI
[2018-01-25] MEDS ORDERED: Acetaminophen TAB* 325 MG PO PRN (06:02)
[2018-01-25 06:19] LABS: Hematocrit 31 % (35-47); Mean Corpuscular HGB Conc 32 g/dl (31-36); Mean Corpuscular Hemoglobin 23 pg (27-31); Mean Corpuscular Volume 73 fL (80-97); Mean Platelet Volume 8.6 um3 (7.4-10.4); Platelet Count 215 10^3/ul (150-450); Red Blood Count 4.28 10^6/ul (4.00-5.40); Red Cell Distribution Width 20 % (10.5-15); White Blood Count 8.2 10^3/ul (3.5-10.8)
[2018-01-25 06:34] LABS: EGFR Non-African American 60.6 (>60)
[2018-01-25] MEDS: Furosemide IV* 10 MG/ML VIAL (40 MG) IV SLOW PU SCH ×2 (09:30→17:46)
[2018-01-25] MEDS: Clopidogrel TAB* 75 MG PO SCH (09:32)
[2018-01-25] MEDS: Atorvastatin* 40 MG TAB PO SCH (09:32)
[2018-01-25] MEDS: Sertraline* 100 MG TAB PO SCH (09:32)
[2018-01-25] MEDS: Aspirin EC TAB* 81 MG TAB.EC PO SCH (09:32)
[2018-01-25] MEDS: Metoprolol Succinate XL TAB* 25 MG PO SCH ×2 (09:33→20:21)
[2018-01-25] MEDS: Losartan TAB* 25 MG PO SCH (09:33)
[2018-01-25] MEDS: Heparin VIAL(*) 5000 UNITS/ML VIAL (FIVE THOUSAND) SUBCUT SCH (09:37)
[2018-01-25] MEDS ORDERED: Potassium Chlor TAB* 20 MEQ TAB.ER PO STA (09:56)
[2018-01-25] MEDS ORDERED: Iohexol 350* (CONTRAST) 500 ML MDV IV ONE ×2 (11:38→16:16)
--- NOTE | 2018-01-25 14:05 | RAD ---
INDICATION: Evaluate for pulmonary embolism. COMPARISON: Comparison is made with a prior CT angiogram of the chest from August 07, 2017. TECHNIQUE: A CT angiogram of the chest was performed with intravenous following intravenous injection of 59 ml of Omnipaque 350 nonionic contrast. Contiguous axial sections were obtained from the lung apices through the lung bases. Images were reconstructed in the coronal and sagittal planes. FINDINGS: There is early suboptimal opacification of the pulmonary arteries which limits the exam. There is suggestion of filling defects and poor opacification of the right lower lobe basilar segmental arteries suspicious for pulmonary emboli. The heart is moderately enlarged. No pericardial effusion is present. There are coronary artery calcifications present. There is a thoraco-abdominal aortic aneurysm which involves the aortic arch and descending thoracic aorta extending into the upper abdominal aorta. There is an endovascular stent graft which begins in the proximal aortic arch and extends into the descending thoracic aorta. There is a second endovascular stent graft that has been placed since the prior study which extends from the lower thoracic aorta into the abdominal aorta and is only partially visualized on this study. There is suboptimal opacification of the aorta on this study. The aneurysm sac appears slightly smaller than on the prior study measuring 4.5 cm in transverse dimension at the aortic arch and previously measuring 5.4 cm in transverse dimension. The aneurysm sac measures 4.7 cm in transverse dimension in the descending thoracic aorta appears to measure 6.2 cm in transverse dimension. There is a mildly prominent pretracheal lymph node measuring 1.1 cm in transverse dimension which is unchanged. No other enlarged mediastinal or hilar lymph nodes are seen. There is mild prominence of the interstitial markings and thickening of the fissures. There is a moderate size right pleural effusion. There is atelectasis in the right lower lobe. No significant focal osseous abnormality is seen. The results of this exam were discussed with the referring clinician. IMPRESSION: 1. LIMITED STUDY FINDINGS SUSPICIOUS FOR RIGHT LOWER LOBE PULMONARY EMBOLI. 2. MODERATE SIZE RIGHT PLEURAL EFFUSION AND FINDINGS SUGGESTIVE OF MILD CONGESTIVE HEART FAILURE. 3. THORACOABDOMINAL ANEURYSM WITH ENDOVASCULAR STENT GRAFT PRESENT. THE ANEURYSM SAC HAS DECREASED SLIGHTLY IN SIZE FROM THE PRIOR STUDY.
[2018-01-25] MEDS ORDERED: Iodixanol 320 (CONTRAST) 100 ML SDV IV SCH (16:49)
--- NOTE | 2018-01-25 17:19 | PN ---
Subjective Date of Service: 01/25/18 Interval History: Pt seen and examined. Meds and labs reviewed ROS: Denied JIMENES/dizziness, F/C, N/V, CP, SOB, increased cough, sputum production , abd pain, diarrhea, constipation, dysuria, myalgias, arthralgias, throat pain , and new skin lesions. The rest of the 14 point ROS are unremarkable. PHYSICAL EXAM: GEN APPEARANCE: Awake, not in acute distress HEENT: NC/AT, PERRLA, moist oral mucosa, (-) throat erythema NECK: Soft, supple, (-) cervical LAD, (-)JVD HEART: S1S2 WNL, RRR, No MRG CHEST: CTA, BL, GAE, No W/R/R ABD: Soft, ND/NT, NABS 4x Q EXT: No C/C/E SKIN: Warm to touch PSYCH: No active psychosis, hallucinations, depression, SI/HI Objective Active Medications: Acetaminophen (Tylenol Tab*) 650 mg PO Q6H PRN PRN Reason: FEVER/PAIN Last Admin: 01/25/18 06:08 Dose: 650 mg Acetylcysteine (Acetylcysteine Cap (Renal)*) 1,200 mg PO BID [facility] Stop: 01/27/18 09:01 Aspirin (Aspirin Ec Tab*) 81 mg PO DAILY [facility] Last Admin: 01/25/18 09:32 Dose: 81 mg Atorvastatin Calcium (Lipitor*) 40 mg PO DAILY [facility] Last Admin: 01/25/18 09:32 Dose: 40 mg Clopidogrel Bisulfate (Plavix Tab*) 75 mg PO DAILY [facility] Last Admin: 01/25/18 09:32 Dose: 75 mg Docusate Sodium (Colace Cap*) 100 mg PO DAILY PRN PRN Reason: CONSTIPATION Furosemide (Lasix Iv*) 40 mg IV SLOW PU 0800,1700 [facility] Last Admin: 01/25/18 09:30 Dose: 40 mg Heparin Sodium (Porcine) (Heparin Vial(*)) 5,000 units SUBCUT Q12HR [facility] Last Admin: 01/25/18 09:37 Dose: 5,000 units Iodixanol (Visipaque 320 (Contrast)) 64 ml IV ONCE [facility] Stop: 01/27/18 16:48 Last Admin: 01/25/18 16:51 Dose: 64 ml Losartan Potassium (Cozaar Tab*) 100 mg PO DAILY [facility] Last Admin: 01/25/18 09:33 Dose: 100 mg Metoprolol Succinate (Toprol Xl Tab*) 25 mg PO BID [facility] Last Admin: 01/25/18 09:33 Dose: 25 mg Sertraline HCl (Zoloft*) 100 mg PO DAILY [facility] Last Admin: 01/25/18 09:32 Dose: 100 mg Vital Signs - 8 hr 01/25/18 01/25/18 11:02 15:26 Temperature 97.6 F 97.8 F Pulse Rate 66 63 Respiratory 16 18 Rate Blood Pressure 156/77 125/63 (mmHg) O2 Sat by Pulse 94 95 Oximetry Oxygen Devices in Use Now: None Result Diagrams: 01/25/18 06:05 01/25/18 06:05 Microbiology and Other Data: Microbiology 01/24/18 14:40 Aerobic Blood Culture - Preliminary Blood Venous No Growth Day 1 Anaerobic Blood Culture - Preliminary No Growth Day 1 01/24/18 13:54 Aerobic Blood Culture - Preliminary Blood Venous No Growth Day 1 Anaerobic Blood Culture - Preliminary No Growth Day 1 Assess/Plan/Problems-Billing Assessment: - Patient Problems (1) CHF exacerbation Current Visit: Yes Status: Acute Code(s): I50.9 - HEART FAILURE, UNSPECIFIED SNOMED Code(s): 09275916 Comment: -Continue ASA, Plavix, Atorvastatin, Losartan, Metoprolol -Continue Lasix -Dr. White ordered initial CTA this AM to R/O PE and unfortunately, findings remain equivocal; suggestion by radiologist is to repeat CTA -Will give Acetylcysteine for renal protection (2) Hypertension Current Visit: No Status: Acute Code(s): I10 - ESSENTIAL (PRIMARY) HYPERTENSION SNOMED Code(s): 36461555 Comment: -Please see above discussion (3) Depression Current Visit: No Status: Acute Code(s): F32.9 - MAJOR DEPRESSIVE DISORDER, SINGLE EPISODE, UNSPECIFIED SNOMED Code(s): 35378129 Comment: -Continue Zoloft (4) DVT prophylaxis Current Visit: No Status: Acute Code(s): SEX2577 - SNOMED Code(s): 261389855 Comment: -Continue Heparin Status and Disposition: -For PT eval
[2018-01-25] MEDS ORDERED: Enoxaparin(*) 60 MG/0.6 ML SYR SUBCUT STA (17:23)
--- NOTE | 2018-01-25 17:24 | RAD ---
INDICATION: Shortness of breath, reevaluation of pulmonary arteries. COMPARISON: Comparison is made with a prior study from approximately 5 hours earlier. TECHNIQUE: A CT angiogram of the chest was performed with intravenous following intravenous injection of 64 ml of Visipaque 320 nonionic contrast. Contiguous axial sections were obtained from the lung apices through the lung bases. Images were reconstructed in the coronal and sagittal planes. FINDINGS: There is slightly improved opacification of the pulmonary arteries although there is incomplete filling of several right lower lobe segmental arteries. The appearance would favor chronic pulmonary emboli although an acute pulmonary embolus cannot be excluded. The appearance of this region on the study from August 2017 is not completely normal although there has been progression from that study. The heart is enlarged. There are coronary artery calcifications present. There is a prosthetic aortic valve. No pericardial effusion is present. There is suboptimal opacification of the thoracic aorta. Again note is made of a thoracoabdominal aortic aneurysm as described on the prior study. There is an endovascular stent graft present. See the prior study for further description and characterization. There is a moderate size right pleural effusion and right lower lobe atelectasis. There is mild prominence of the interstitial markings and thickening of the fissures. No significant focal osseous abnormality is seen. The results of this exam were discussed with the referring clinician. IMPRESSION: 1. THERE IS ABNORMAL OPACIFICATION OF SEVERAL RIGHT LOWER LOBE SEGMENTAL ARTERIES. THE APPEARANCE WOULD FAVOR CHRONIC PULMONARY EMBOLI ALTHOUGH ACUTE PULMONARY EMBOLUS CANNOT BE EXCLUDED. 2. THORACOABDOMINAL AORTIC ANEURYSM PREVIOUSLY DESCRIBED WITH ENDOVASCULAR STENT GRAFT IN PLACE. 3. RIGHT PLEURAL EFFUSION AND FINDINGS SUGGESTIVE OF MILD CONGESTIVE HEART FAILURE.
[2018-01-25] MEDS: Acetylcysteine CAP (RENAL)* 600 MG PO SCH (20:11)
[2018-01-25] MEDS: Rivaroxaban TAB(*) 15 MG PO SCH (20:11)
[2018-01-26 05:31] LABS: ABS Basophils 0.1 10^3/ul (0-0.2); ABS Eosinophils 0.4 10^3/ul (0-0.6); ABS Lymphocytes 1.2 10^3/ul (1.0-4.8); ABS Monocytes 0.7 10^3/ul (0-0.8); ABS Neutrophils 7.4 10^3/ul (1.5-7.7); ABS Nucleated RBC 0 10^3/ul; Eosinophil % 3.7 % (0-6); Hematocrit 33 % (35-47); Hemoglobin 10.5 g/dl (12.0-16.0); Lymphocyte % 12.4 % (25-47); Mean Corpuscular HGB Conc 32 g/dl (31-36); Mean Corpuscular Hemoglobin 24 pg (27-31); Mean Corpuscular Volume 74 fL (80-97); Mean Platelet Volume 8.6 um3 (7.4-10.4); Nucleated Red Blood Cells % 0.1; Platelet Count 229 10^3/ul (150-450); Red Blood Count 4.43 10^6/ul (4.00-5.40); Red Cell Distribution Width 20 % (10.5-15); White Blood Count 9.7 10^3/ul (3.5-10.8)
[2018-01-26 05:45] LABS: EGFR Non-African American 55.6 (>60)
[2018-01-26 08:05] VITALS: BP 162/73
[2018-01-26] MEDS: Furosemide IV* 10 MG/ML VIAL (40 MG) IV SLOW PU SCH (08:16)
[2018-01-26] MEDS: Aspirin EC TAB* 81 MG TAB.EC PO SCH (08:21)
[2018-01-26] MEDS: Rivaroxaban TAB(*) 15 MG PO SCH (08:21)
[2018-01-26] MEDS: Sertraline* 100 MG TAB PO SCH (08:21)
[2018-01-26] MEDS: Acetylcysteine CAP (RENAL)* 600 MG PO SCH (08:22)
[2018-01-26] MEDS: Losartan TAB* 25 MG PO SCH (08:22)
[2018-01-26] MEDS: Metoprolol Succinate XL TAB* 25 MG PO SCH (08:22)
[2018-01-26] MEDS: Atorvastatin* 40 MG TAB PO SCH (08:22)
[2018-01-26] MEDS: Clopidogrel TAB* 75 MG PO SCH (08:22)
[2018-01-26] MEDS ORDERED: Potassium Chlor TAB* 20 MEQ TAB.ER PO STA (09:15)
[2018-01-26] MEDS ORDERED: Magnesium Sulfate 1 GM IV* 1 GM/100 ML BAG IV ONE (09:15)
--- NOTE | 2018-01-27 06:20 | DS ---
CC: Dr. White; Dr. Chandana Wood; Dr. Tri Taveras DISCHARGE SUMMARY: DATE OF ADMISSION: DATE OF DISCHARGE: 01/26/18. DISCHARGE DIAGNOSES: 1. Congestive heart failure exacerbation. 2. Abnormal opacifications of several right lower lobe segmental artery by a CTA likely [id number] pulmonary emboli that is difficult to exclude from one another. 3. History of thoracoabdominal aortic aneurysm with endovascular stent graft placement. 4. History of hypertension. 5. History of depression. HISTORY OF PRESENT ILLNESS/HOSPITAL COURSE: The patient is a 72-year-old lady with a history of CAD, status post NV with ischemic cardiomyopathy, CHF, combined systolic and diastolic CHF, and abdominal aortic aneurysm, status post stent placement back in August of 2017, who presented in 01/24/18, with shortness of breath and was initially diagnosed with CHF exacerbation given her presentation and clinical exam along with her clinical picture. She is somewhat improved, however, still complained of significant shortness of breath especially on exertion and a CT angio was therefore done on 01/25/18, which revealed the above concern for acute versus chronic PE, which has several loci. Given her history of feeling unwell for many weeks including her recent vacation, it is high likelihood that some of these are truly acute and some are truly chronic. Hence she was provided with full dose anticoagulation overnight prior to her discharge and was subsequently transitioned to Xarelto. She had been advised to follow up and/or call her PCP within 3 days post- discharge, to call [facility] if her PCP cannot see her any sooner. To contact her PCP first and to make sure that he or she agrees that she is able to be seen in the outpatient sooner instead of the ER if she needs to be evaluated and her PCP would not be able to do so. She was given electronic scripts to have her magnesium and potassium levels drawn on 01/29/18 and to discuss the results with her PCP if she will require any further supplementations. It was also clarified that she will need to take 15 mg of Xarelto b.i.d. for 20 more days to complete the 21-day treatment and then discontinue this regimen and begin the 30-mg dose daily and to make sure that she is on Xarelto for at least 3 months unless otherwise contraindicated. She was advised to discuss any further treatment and/or workup with her PCP beyond this 3 months' period. She was advised to call my office regarding any questions, concerns or further clarifications regarding her discharge plan and/ or prescriptions and to take her medications as prescribed. REVIEW OF SYSTEMS: On review of systems, the patient denied any recent headaches, dizziness, fevers, chills, nausea, vomiting, chest pain, shortness of breath, increased cough or sputum production, abdominal pain, diarrhea, constipation, pain and/or increased frequency on urination, myalgias or arthralgias, throat pain or new skin lesions. The rest of the 14-point review of systems are otherwise unremarkable. PHYSICAL EXAMINATION: Shows her most recent vital signs of records with temperature of 97.3 degrees Fahrenheit, 78 beats per minute heart rate, 16 per minute respiratory rate, blood pressure of 162/73, from previous of 147/71, saturating at 98% on room air. General Appearance: The patient is awake, alert , and oriented x3, not in acute distress. HEENT: Normocephalic, atraumatic. PERRLA. Extraocular muscles intact. Negative for icterus. Moist oral mucosa. Negative throat erythema. Neck is soft, supple with no cervical lymphadenopathy. No JVD. Heart: S1, S2 within normal limits. Regular rate and rhythm. No murmurs, rubs, and gallops. Chest: Clear to auscultation bilaterally. Good air entry. No wheezes, rales or rhonchi. Abdomen is soft, nondistended, nontender. Normoactive bowel sounds x4 quadrants. Extremities: No cyanosis, clubbing or edema. Psychiatric: No active psychosis, depression, suicidal nor homicidal ideations. Skin is warm to touch. DISCHARGE MEDICATIONS: Are as follows: 1. Tylenol 650 mg p.o. q.6 p.r.n. 2. Aspirin 81 mg p.o. daily. 3. Atorvastatin 40 mg p.o. daily. 4. Clopidogrel 75 mg p.o. daily. 5. Colace 100 mg p.o. daily. 6. Ferrous sulfate 325 mg p.o. 2 to 3 times a week. 7. Furosemide 20 mg p.o. Monday, Monday, Monday, and . 8. Losartan 25 mg p.o. daily. 9. Metoprolol 25 mg p.o. b.i.d. 10. Xarelto 15 mg p.o. b.i.d. for 20 more days then switch to a regimen of 20 mg p.o. daily. 11. Sertraline 100 mg p.o. daily. 12. Spironolactone 25 mg p.o. daily. TIME SPENT: The total time spent evaluating the patient, reviewing pertinent data, and appropriate documentation is greater than 30 minutes. [id number]/[facility] #: [id number] MTDD
== END 2018-01-26 15:58 | disposition home health service (06) | DRG 291 ==
LOC: ED 13:21 → MEDTELE 16:52 → OBSVTOIN 01-25 14:19
PROVIDERS: ADMIT Hospitalist; ATTEND Student in an Organized Health Care Education/Training Program
DX: I11.0 Hypertensive heart disease with heart failure (principal); I26.99 Other pulmonary embolism without acute cor pulmonale; I27.82 Chronic pulmonary embolism; J98.11 Atelectasis; I50.43 Acute on chronic combined systolic (congestive) and diastolic (congestive) heart failure; I25.10 Atherosclerotic heart disease of native coronary artery without angina pectoris; G47.30 Sleep apnea, unspecified; H91.90 Unspecified hearing loss, unspecified ear; J30.2 Other seasonal allergic rhinitis; G43.909 Migraine, unspecified, not intractable, without status migrainosus; F32.9 Major depressive disorder, single episode, unspecified; F41.9 Anxiety disorder, unspecified; H54.62 Unqualified visual loss, left eye, normal vision right eye; I25.5 Ischemic cardiomyopathy; E78.5 Hyperlipidemia, unspecified; Z88.5 Allergy status to narcotic agent; Z88.2 Allergy status to sulfonamides; Z88.8 Allergy status to other drugs, medicaments and biological substances; Z99.81 Dependence on supplemental oxygen; Z90.49 Acquired absence of other specified parts of digestive tract; Z82.49 Family history of ischemic heart disease and other diseases of the circulatory system; Z72.89 Other problems related to lifestyle; Z87.891 Personal history of nicotine dependence; Z95.2 Presence of prosthetic heart valve; Z95.828 Presence of other vascular implants and grafts; Z98.42 Cataract extraction status, left eye; Z98.41 Cataract extraction status, right eye; Z83.6 Family history of other diseases of the respiratory system; Z79.82 Long term (current) use of aspirin; I25.2 Old myocardial infarction; Z79.02 Long term (current) use of antithrombotics/antiplatelets; Z79.01 Long term (current) use of anticoagulants
CPT/HCPCS: 36415; 71046; 71275; 76705; 80048; 80053; 83605; 83735; 83880; 84100; 84484; 85025; 85027; 85379; 85610; 85730; 86140; 87040; 93005; 99284; A9270-GY; G0378; G8978-GP-CI; G8979-GP-CI; G8980-GP-CI; J1644; J1650; J1940; J3475; Q9967

== ENCOUNTER 2018-02-15 19:25 | Emergency (ER) | payer BC ==
--- NOTE | 2018-02-15 21:39 | ED ---
Complex/Multi-Sys Presentation - HPI Summary HPI Summary: This is Marty mendiola documenting for attending physician Kathryn Ndiaye MD. This patient is a 72 year old F presenting to [facility] accompanied by her . Pt states she has CHF and has been feeling poorly for the last 3 days. She had blood drawn today that showed severe anemia and was sent here today by Dr. Carpio for a blood transfusion. The patient rates the pain 2/10 in severity. Patient reports weakness, dizziness, back pain, and LE pain. Patient denies SOB. Pt has ambulating with her walker at home. Pt has dark stool but states it is like this chronically due to her supplementing iron. - History Of Current Complaint Chief Complaint: EDGeneral Hx Obtained From: Patient Onset/Duration: Lasting Days - 3, Still Present Timing: Constant Severity Currently: Mild Severity Initially: Mild Associated Signs And Symptoms: Positive: Weakness, Other - anemia and weakness. Negative: SOB - Allergies/Home Medications Allergies/Adverse Reactions: Allergies Allergy/AdvReac Type Severity Reaction Status Date / Time lisinopril Allergy Coughing Verified 02/15/18 19:34 morphine Allergy Vomiting Verified 02/15/18 19:34 Sulfa (Sulfonamide Allergy Unknown Verified 02/15/18 19:34 Antibiotics) Reaction Details PMH/Surg Hx/FS Hx/Imm Hx Endocrine/Hematology History: Denies: Hx Anticoagulant Therapy, Hx Blood Disorders, Hx Blood Transfusions, Hx Bone Marrow Disease, Hx Diabetes, Hx Systemic Lupus Erythematosus, Hx Sickle Cell Disease, Hx Thyroid Disease, Hx Anemia, Hx Unexplained Bleeding, Other Endocrine/Hematological Disorders Cardiovascular History: Reports: 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 , Hx Angina, Hx Coronary Artery Disease, Hx Hypercholesterolemia, Hx Hypertension - on meds Denies: Hx Angioplasty, Hx Auto Implanted Cardiovert Defib, Hx Cardiac Arrest , Hx Cardiomegaly, Hx Congenital Heart Disease, Hx Congestive Heart Failure, Hx Deep Vein Thrombosis, Hx Embolism, Hx Hypotension, Hx Pacemaker/ICD, Hx Peripheral Vascular Disease, Hx Rheumatic Fever, Hx Syncope, Hx Valvular Heart Disease Comment Only: Other Cardiovascular Problems/Disorders - AORTIC ANEURISM REPAIR Respiratory History: Reports: Hx Seasonal Allergies - current CPAP user, Hx Sleep Apnea - current BiPAP user, Other Respiratory Problems/Disorders - sleep apnea cpap Denies: Hx Asthma, Hx Chronic Bronchitis, Hx Chronic Obstructive Pulmonary Disease (COPD), Hx Cystic Fibrosis, Hx Lung Cancer, Hx Pleural Effusion, Hx Pneumonia, Hx Pulmonary Edema, Hx Pulmonary Embolism GI History: Denies: Hx Cirrhosis, Hx Crohn's Disease, Hx Diverticulosis, Hx Gall Bladder Disease, Hx Gastroesophageal Reflux Disease, Hx Gastrointestinal Bleed, Hx Hiatal Hernia, Hx Irritable Bowel, Hx Jaundice, Hx Obstructive Bowel, Hx Ileostomy, Hx Pyloric Stenosis, Hx Ulcer, Other GI Disorders History: Denies: Hx Acute Renal Failure, Hx Benign Prostatic Hyperplasia, Hx Chronic Renal Failure, Hx Dialysis, Hx Kidney Infection, Hx Kidney Stones, Other Problems/Disorders Musculoskeletal History: Denies: Hx Arthritis, Hx Back Problems, Hx Bursitis, Hx Congenital Bone Abnormalities, Hx Fibromyalgia, Hx Gout, Hx Orthopedic Injury, Hx Osteoporosis, Hx Scoliosis, Hx Tendonitis, Other Musculoskeletal History Sensory History: Reports: Hx Vision Problem, Hx Hearing Problem Denies: Hx Cataracts, Hx Contacts or Glasses, Hx Eye Injury, Hx Eye Prosthesis, Hx Glaucoma, Hx Legally Blind, Hx Macular Degeneration, Hx Deafness , Hx Hearing Aid, Other Sensory Impairments Opthamlomology History: Reports: Hx Vision Problem Denies: Hx Cataracts, Hx Contacts or Glasses, Hx Eye Injury, Hx Eye Prosthesis, Hx Glaucoma, Hx Legally Blind, Hx Macular Degeneration, Other Sensory Impairments Neurological History: Reports: Hx Headaches, Hx Migraine Denies: Hx Dementia, Hx Developmental Delay, Hx Nerve Disease, Hx Seizures, Hx Spinal Cord Injury, Hx Transient Ischemic Attacks (TIA), Other Neuro Impairments/Disorders Psychiatric History: Reports: Hx Anxiety, Hx Depression Denies: Hx Attention Deficit Hyperactivity Disorder, Hx Eating Disorder, Hx Panic Disorder, Hx Post Traumatic Stress Disorder, Hx Inpatient Treatment, Hx Community Mental Health Tx, Hx Schizophrenia, Hx Bipolar Disorder, Hx Suicide Attempt, Hx of Violent Episodes Against Others, Hx Substance Abuse, Other Psychiatric Issues/Disorders - Surgical History Surgery Procedure, Year, and Place: 1998 [facility]-bowel resection. 1999 [facility]-(left) ankle FX+repair. 1961 tonsils. dental surgeries cardiac surgeries, cardiac aneurysm x 3,isabel. Nephrectomy Hx Anesthesia Reactions: No - Immunization History Date of Tetanus Vaccine: unk Date of Influenza Vaccine: fall 2016 Infectious Disease History: No Infectious Disease History: Reports: Traveled Outside the [place] in Last 30 Days - Sadie Espinosa Denies: Hx Clostridium Difficile, Hx Hepatitis - Hepatitis as a child, Hx Human Immunodeficiency Virus (HIV), Hx of Known/Suspected MRSA, Hx Shingles, Hx Tuberculosis, Hx Known/Suspected VRE, Hx Known/Suspected VRSA, History Other Infectious Disease - Family History Known Family History: Positive: Hypertension - Social History Lives: With Family Alcohol Use: Occasionally Alcohol Amount: 2-3 glasses of wine/day, not every day Substance Use Type: Reports: None Smoking Status (MU): Former Smoker Type: Cigarettes Amount Used/How Often: 1 or 2 cigarettes/day Have You Smoked in the Last Year: No Review of Systems Positive: Other - "feeling poorly" Positive: Other - anemia Negative: Shortness Of Breath Positive: Other - LE and back pain Neurological: Other - dizziness Positive: Weakness All Other Systems Reviewed And Are Negative: Yes Physical Exam - Summary Physical Exam Summary: VITAL SIGNS: Reviewed. GENERAL: Patient is a well-developed and pale female who is lying comfortable in the stretcher. Patient is not in any acute respiratory distress. HEAD AND FACE: No signs of trauma. No ecchymosis, hematomas or skull depressions. No sinus tenderness. EYES: PERRLA, EOMI x 2, No injected conjunctiva, no nystagmus. EARS: Hearing grossly intact. Ear canals and tympanic membranes are within normal limits. MOUTH: Oropharynx within normal limits. NECK: Supple, trachea is midline, no adenopathy, no JVD, no carotid bruit, no c- spine tenderness, neck with full ROM. CHEST: Symmetric, no tenderness at palpation LUNGS: Clear to auscultation bilaterally. No wheezing or crackles. CVS: Regular rate and rhythm, S1 and S2 present, no murmurs or gallops appreciated. ABDOMEN: Soft, non-tender. No signs of distention. No rebound no guarding, and no masses palpated. Bowel sounds are normal. EXTREMITIES: FROM in all major joints, no edema, no cyanosis or clubbing. NEURO: Alert and oriented x 3. No acute neurological deficits. Speech is normal and follows commands. SKIN: Dry and warm Rectal: Sample sent to lab to check for blood. Black stool Triage Information Reviewed: Yes Vital Signs On Initial Exam: Initial Vitals Temp Pulse Resp BP Pulse Ox 99.1 F 73 20 105/32 100 02/15/18 19:31 02/15/18 19:31 02/15/18 19:31 02/15/18 19:31 02/15/18 19:31 Vital Signs Reviewed: Yes Diagnostics - Vital Signs Vital Signs Temp Pulse Resp BP Pulse Ox 02/15/18 19:31 99.1 F 73 20 105/32 100 - Laboratory Result Diagrams: 02/15/18 21:54 02/15/18 21:54 Lab Statement: Any lab studies that have been ordered have been reviewed, and results considered in the medical decision making process. - Radiology CXR Radiology Interpretation Completed By: ED Physician - no acute process pending official report. - EKG 2247 Cardiac Rate: NL EKG Rhythm: Sinus Rhythm - at 80 BPM EKG Interpretation: LVH Re-Evaluation - Re-Evaluation First Eval Re-Evaluation Time: 22:48 Change: Unchanged Comment: Pt was found to be guaiac positive and her bun is elevated. It is most likely an upper GI bleed. She will be getting Kcentra, protonix drip, IV, and blood transfusion. There is no GI tactical deception plans officer so the patient will have to be transfer, she would like to go to [facility]. Complex Multi-Symp Course/Dx Assessment/Plan: This patient is a 72 year old F presenting to [facility] accompanied by her . Pt states she has CHF and has been feeling poorly for the last 3 days. She had blood drawn today that showed severe anemia and was sent here today by Dr. Carpio for a blood transfusion. The patient rates the pain 2/10 in severity. Patient reports weakness, dizziness, back pain, and LE pain. Patient denies SOB. Pt has ambulating with her walker at home. Pt has dark stool but states it is like this chronically due to her supplementing iron. An EKG reveals NSR LVH. CXR reveals, no acute process pending official report.. Blood work and stool sample obtained. In the ED course the patient was given protonix, kcentra, and protonix. The patient is currently hemodynamically stable. 2302 We discussed patient care with [facility] and they stated they will check to see if they have available beds. 2332 We discussed patient care with the [facility] and the have accepted the pt. The accepting physician is doctor Ferrara. The patient will be transferred for her upper GI bleed. - Diagnoses Provider Diagnoses: Upper GI bleed Discharge - Sign-Out/Discharge Documenting (check all that apply): Patient Departure - transfer - Discharge Plan Condition: Stable Disposition: TRANS HIGHER LVL OF CARE FAC Referrals: Tri Taveras MD [Primary Care Provider] - - Billing Disposition and Condition Condition: STABLE Disposition: Trans Higher Lvl of Care Fac Attestation Statement Scribe Attestation: This is Marty mendiola documenting for attending physician Kathryn Ndiaye MD. User Type: Provider with Scribe Provider Attestation: The documentation recorded by the scribe accurately reflects the service I personally performed and the decisions made by me.
[2018-02-15 22:09] LABS: Immature Retic Fraction 0.59; RBC Retic Count 2.64 10^6/ul (4.6-6.2); Red Blood Count 2.64 10^6/ul (4.00-5.40)
[2018-02-15 22:10] LABS: INR 1.69 (0.77-1.02)
[2018-02-15 22:14] LABS: Corrected Retic Count 1.3 % (0.5-1.5); Hematocrit 19 % (35-47); Hematocrit for Retic CNT 19 % (35-47); Mean Corpuscular HGB Conc 33 g/dl (31-36); Mean Corpuscular Hemoglobin 24 pg (27-31); Mean Corpuscular Volume 73 fL (80-97); Mean Platelet Volume 7.7 um3 (7.4-10.4); Platelet Count 265 10^3/ul (150-450); Red Cell Distribution Width 19 % (10.5-15)
[2018-02-15 22:15] LABS: ABS Basophils 0 10^3/ul (0-0.2); ABS Eosinophils 0.2 10^3/ul (0-0.6); ABS Monocytes 0.5 10^3/ul (0-0.8); ABS Neutrophils 6.3 10^3/ul (1.5-7.7); ABS Nucleated RBC 0 10^3/ul; Eosinophil % 2.7 % (0-6); Nucleated Red Blood Cells % 0
[2018-02-15 22:18] LABS: EGFR Non-African American 53.7 (>60)
[2018-02-15] MEDS ORDERED: Pantoprazole IV* 40 MG IV ONE (22:40)
[2018-02-15 22:41] LABS: Hemoglobin 6.3 g/dl (12.0-16.0)
[2018-02-15] MEDS ORDERED: Pantoprazole IV* 80 MG in NS 0.9% 250 ML* 250 ML IV SCH (23:00)
[2018-02-16 00:45] VITALS: BP 121/52
--- NOTE | 2018-02-16 07:29 | RAD ---
INDICATION: CHF. COMPARISON: Comparison is made with a prior study from January 24, 2018. TECHNIQUE: A portable view of the chest was obtained. FINDINGS: The patient is status post sternotomy and cardiac valve surgery. The heart is mildly enlarged. There is a thoracic aortic aneurysm. There is an endovascular stent in place which appears unchanged in position to the prior study. The lungs are clear. No pleural effusion is seen. IMPRESSION: 1. NO EVIDENCE FOR ACUTE FINDING. 2. THORACIC AORTIC ANEURYSM STATUS POST ENDOVASCULAR STENT PLACEMENT. R1
--- NOTE | 2018-02-17 08:00 | ED ---
Progress - Progress Note Progress Note: Patient has a positive stool occult blood. She was transferred to higher level of care with diagnosis of upper GI bleed. No further action necessary at this time. Re-Evaluation - Re-Evaluation First Eval Re-Evaluation Time: 22:48 Change: Unchanged Comment: Pt was found to be guaiac positive and her bun is elevated. It is most likely an upper GI bleed. She will be getting Kcentra, protonix drip, IV, and blood transfusion. There is no GI precision honer so the patient will have to be transfer, she would like to go to [facility]. Course/Dx - Diagnoses Provider Diagnoses: Upper GI bleed Discharge - Sign-Out/Discharge Documenting (check all that apply): Post-Discharge Follow Up - Discharge Plan Condition: Stable Disposition: TRANS HIGHER LVL OF CARE FAC Referrals: Tri Taveras MD [Primary Care Provider] - - Billing Disposition and Condition Condition: STABLE Disposition: Trans Higher Lvl of Care Fac
== END 2018-02-16 00:44 | disposition short-term general hospital (02) ==
LOC: ED 19:25
DX: K92.2 Gastrointestinal hemorrhage, unspecified (principal); R53.1 Weakness; Z87.891 Personal history of nicotine dependence
CPT/HCPCS: 36415; 71045; 80053; 82270; 85025; 85045; 85610; 85730; 86850; 86900; 86901; 86922; 93005; 99285; C9132

== ENCOUNTER 2018-03-12 22:49 | Emergency (ER) | payer BC ==
--- NOTE | 2018-03-12 23:23 | ED ---
HPI Chest Pain - HPI Summary HPI Summary: A 72 y/o female BISHOP presents to ED c/o chest pain reaching 2/10 in severity. In the ED room, the patient has a pulse of 71 BPM, O2 saturation of 97% and blood pressure of 133/62. As per triage, "pt here by EMS for c/o mid sternal chest pain that started about 10pm tonight, does have cardiac HX". According to the patient, she has been experiencing mid-sternal chest pain coupled with numbness of her hands and both legs since 1999. She stated that she was watching television when the onset of pain started, however, the pain started getting better once EMS arrived (about 30 minute episode). Denies any nausea or vomiting. PMHx of cholecystectomy, no stress test. Welfare Specialist is Dr. Carpio. Does not remember when last ECHO was done, but may have one done at [facility]. She was at [facility] for GI issues, as she was severely anemic, no scope was done. PCP is arranging scope. - History of Current Complaint Chief Complaint: EDChestWallPain Time Seen by Provider: 03/12/18 23:05 Hx Obtained From: Patient Onset/Duration: Started Hours Ago, Still Present Timing: Constant, Lasting Hours Initial Severity: Mild Current Severity: Mild Pain Intensity: 2 Pain Scale Used: 0-10 Numeric Chest Pain Location: Mid Sternal Chest Pain Radiates: No Aggravating Factor(s): Nothing Alleviating Factor(s): Nothing Associated Signs and Symptoms: Positive: Chest Pain, Numbness. Negative: Nausea , Vomiting - Additional Pertinent History Primary Care Physician: [id number] - Allergy/Home Medications Allergies/Adverse Reactions: Allergies Allergy/AdvReac Type Severity Reaction Status Date / Time lisinopril Allergy Coughing Verified 03/12/18 23:01 morphine Allergy Vomiting Verified 03/12/18 23:01 Sulfa (Sulfonamide Allergy Unknown Verified 03/12/18 23:01 Antibiotics) Reaction Details Home Medications: Home Medications Iron Sucrose Complex [Venofer] 20 mg IV ONCE 03/12/18 [History Confirmed ] Pantoprazole Sodium [Protonix] 40 mg PO DAILY 03/12/18 [History Confirmed ] PMH/Surg Hx/FS Hx/Imm Hx Endocrine/Hematology History: Denies: Hx Anticoagulant Therapy, Hx Blood Disorders, Hx Blood Transfusions, Hx Bone Marrow Disease, Hx Diabetes, Hx Systemic Lupus Erythematosus, Hx Sickle Cell Disease, Hx Thyroid Disease, Hx Anemia, Hx Unexplained Bleeding, Other Endocrine/Hematological Disorders Cardiovascular History: Reports: 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 , Hx Angina, Hx Coronary Artery Disease, Hx Hypercholesterolemia, Hx Hypertension - on meds Denies: Hx Angioplasty, Hx Auto Implanted Cardiovert Defib, Hx Cardiac Arrest , Hx Cardiomegaly, Hx Congenital Heart Disease, Hx Congestive Heart Failure, Hx Deep Vein Thrombosis, Hx Embolism, Hx Hypotension, Hx Pacemaker/ICD, Hx Peripheral Vascular Disease, Hx Rheumatic Fever, Hx Syncope, Hx Valvular Heart Disease Comment Only: Other Cardiovascular Problems/Disorders - AORTIC ANEURISM REPAIR Respiratory History: Reports: Hx Seasonal Allergies - current CPAP user, Hx Sleep Apnea - current BiPAP user, Other Respiratory Problems/Disorders - sleep apnea cpap Denies: Hx Asthma, Hx Chronic Bronchitis, Hx Chronic Obstructive Pulmonary Disease (COPD), Hx Cystic Fibrosis, Hx Lung Cancer, Hx Pleural Effusion, Hx Pneumonia, Hx Pulmonary Edema, Hx Pulmonary Embolism GI History: Denies: Hx Cirrhosis, Hx Crohn's Disease, Hx Diverticulosis, Hx Gall Bladder Disease, Hx Gastroesophageal Reflux Disease, Hx Gastrointestinal Bleed, Hx Hiatal Hernia, Hx Irritable Bowel, Hx Jaundice, Hx Obstructive Bowel, Hx Ileostomy, Hx Pyloric Stenosis, Hx Ulcer, Other GI Disorders History: Denies: Hx Acute Renal Failure, Hx Benign Prostatic Hyperplasia, Hx Chronic Renal Failure, Hx Dialysis, Hx Kidney Infection, Hx Kidney Stones, Other Problems/Disorders Musculoskeletal History: Denies: Hx Arthritis, Hx Back Problems, Hx Bursitis, Hx Congenital Bone Abnormalities, Hx Fibromyalgia, Hx Gout, Hx Orthopedic Injury, Hx Osteoporosis, Hx Scoliosis, Hx Tendonitis, Other Musculoskeletal History Sensory History: Reports: Hx Vision Problem, Hx Hearing Problem Denies: Hx Cataracts, Hx Contacts or Glasses, Hx Eye Injury, Hx Eye Prosthesis, Hx Glaucoma, Hx Legally Blind, Hx Macular Degeneration, Hx Deafness , Hx Hearing Aid, Other Sensory Impairments Opthamlomology History: Reports: Hx Vision Problem Denies: Hx Cataracts, Hx Contacts or Glasses, Hx Eye Injury, Hx Eye Prosthesis, Hx Glaucoma, Hx Legally Blind, Hx Macular Degeneration, Other Sensory Impairments Neurological History: Reports: Hx Headaches, Hx Migraine Denies: Hx Dementia, Hx Developmental Delay, Hx Nerve Disease, Hx Seizures, Hx Spinal Cord Injury, Hx Transient Ischemic Attacks (TIA), Other Neuro Impairments/Disorders Psychiatric History: Reports: Hx Anxiety, Hx Depression Denies: Hx Attention Deficit Hyperactivity Disorder, Hx Eating Disorder, Hx Panic Disorder, Hx Post Traumatic Stress Disorder, Hx Inpatient Treatment, Hx Community Mental Health Tx, Hx Schizophrenia, Hx Bipolar Disorder, Hx Suicide Attempt, Hx of Violent Episodes Against Others, Hx Substance Abuse, Other Psychiatric Issues/Disorders - Surgical History Surgery Procedure, Year, and Place: 1998 [facility] [place]-bowel resection. 1999 [facility]-(left) ankle FX+repair. 1961 tonsils. dental surgeries cardiac surgeries, cardiac aneurysm x 3,isabel. Nephrectomy Hx Anesthesia Reactions: No - Immunization History Date of Tetanus Vaccine: unk Date of Influenza Vaccine: fall 2016 Infectious Disease History: No Infectious Disease History: Denies: Hx Clostridium Difficile, Hx Hepatitis - Hepatitis as a child, Hx Human Immunodeficiency Virus (HIV), Hx of Known/Suspected MRSA, Hx Shingles, Hx Tuberculosis, Hx Known/Suspected VRE, Hx Known/Suspected VRSA, History Other Infectious Disease, Traveled Outside the in Last 30 Days - Family History Known Family History: Positive: Hypertension - Social History Alcohol Use: Occasionally Alcohol Amount: 2-3 glasses of wine/day, not every day Substance Use Type: Reports: None Smoking Status (MU): Former Smoker Type: Cigarettes Amount Used/How Often: 1 or 2 cigarettes/day Have You Smoked in the Last Year: No Review of Systems Negative: Fever Positive: Chest Pain Negative: Vomiting, Nausea Positive: Numbness All Other Systems Reviewed And Are Negative: Yes Physical Exam - Summary Physical Exam Summary: VITAL SIGNS: Reviewed. GENERAL: Patient is a well-developed and nourished female who is lying comfortable in the stretcher. Patient is not in any acute respiratory distress. Normal exam. HEAD AND FACE: No signs of trauma. No ecchymosis, hematomas or skull depressions. No sinus tenderness. EYES: PERRLA, EOMI x 2, No injected conjunctiva, no nystagmus. EARS: Hearing grossly intact. Ear canals and tympanic membranes are within normal limits. MOUTH: Oropharynx within normal limits. NECK: Supple, trachea is midline, no adenopathy, no JVD, no carotid bruit, no c- spine tenderness, neck with full ROM. CHEST: Symmetric, no tenderness at palpation LUNGS: Clear to auscultation bilaterally. No wheezing or crackles. CVS: Regular rate and rhythm, S1 and S2 present, no murmurs or gallops appreciated. ABDOMEN: Soft, non-tender. No signs of distention. No rebound no guarding, and no masses palpated. Bowel sounds are normal. EXTREMITIES: FROM in all major joints, no edema, no cyanosis or clubbing. NEURO: Alert and oriented x 3. No acute neurological deficits. Speech is normal and follows commands. SKIN: Dry and warm Triage Information Reviewed: Yes Vital Signs On Initial Exam: Initial Vitals Temp Pulse Resp BP Pulse Ox 97.6 F 79 16 133/62 96 03/12/18 23:01 03/12/18 23:01 03/12/18 23:01 03/12/18 23:01 03/12/18 23:01 Vital Signs Reviewed: Yes Diagnostics - Vital Signs Vital Signs Temp Pulse Resp BP Pulse Ox 03/12/18 23:01 97.6 F 79 16 133/62 96 - Laboratory Result Diagrams: 03/12/18 23:53 03/12/18 23:53 Lab Statement: Any lab studies that have been ordered have been reviewed, and results considered in the medical decision making process. - EKG 2305 Cardiac Rate: NL - 69 BPM EKG Rhythm: Sinus Rhythm EKG Interpretation: Normal axis, normal interval, LVH, non-specific T-wave changes. EKG Comparison: No Significant Change - 02/15/2018 Chest Pain Course/Dx - Course Course Of Treatment: A 72 y/o female BISHOP presents to ED c/o chest pain reaching 2/10 in severity. In the ED room, the patient has a pulse of 71 BPM, O2 saturation of 97% and blood pressure of 133/62. An EKG revealed NSR of 69 BPM , normal axis, normal interval, LVH, non-specific T-wave changes. In the ED course, the patient recieved Protonix. Patient is not in any respiratory distress and does not have difficulty breathing. Patient will be discharged with a diagnosis of atypical chest pain. 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 Patient is agreeable with this plan. - Diagnoses Provider Diagnoses: Atypical chest pain Discharge - Sign-Out/Discharge Documenting (check all that apply): Patient Departure - DISCHARGE - Discharge Plan Condition: Stable Disposition: HOME Patient Education Materials: Chest Pain (ED) Referrals: Tri Taveras MD [Primary Care Provider] - Cedric Carpio DO [Medical Doctor] - 2 Days Additional Instructions: FOLLOW UP WITH CARDIOLOGY IN 1-2 DAYS. RETURN TO ED FOR ANY NEW OR WORSENING SYMPTOMS. - Attestation Statements Document Initiated by Scribe: Yes Documenting Scribe: Stevan Wheeler Provider For Whom Scribe is Documenting (Include Credential): Kathryn Ndiaye MD Scribe Attestation: Stevan Mitchell, scribed for Kathryn Ndiaye MD on 03/13/18 at 0353.
[2018-03-12] MEDS ORDERED: Pantoprazole IV* 40 MG IV ONE (23:24)
[2018-03-12 23:58] LABS: ABS Basophils 0.1 10^3/ul (0-0.2); ABS Eosinophils 0.1 10^3/ul (0-0.6); ABS Lymphocytes 0.8 10^3/ul (1.0-4.8); ABS Monocytes 0.6 10^3/ul (0-0.8); ABS Neutrophils 5.4 10^3/ul (1.5-7.7); ABS Nucleated RBC 0 10^3/ul; Eosinophil % 1.9 % (0-6); Hematocrit 29 % (35-47); Hemoglobin 9.2 g/dl (12.0-16.0); Lymphocyte % 11.3 % (25-47); Mean Corpuscular HGB Conc 32 g/dl (31-36); Mean Corpuscular Hemoglobin 25 pg (27-31); Mean Corpuscular Volume 77 fL (80-97); Mean Platelet Volume 7.9 um3 (7.4-10.4); Nucleated Red Blood Cells % 0; Platelet Count 173 10^3/ul (150-450); Red Blood Count 3.68 10^6/ul (4.00-5.40); Red Cell Distribution Width 19 % (10.5-15); White Blood Count 6.9 10^3/ul (3.5-10.8)
[2018-03-13 00:06] LABS: INR 1.04 (0.77-1.02)
[2018-03-13 00:16] LABS: EGFR Non-African American 48.7 (>60)
[2018-03-13 04:14] VITALS: BP 132/79
== END 2018-03-13 04:35 | disposition home or self-care (01) ==
LOC: ED 22:49
DX: R07.89 Other chest pain (principal); Z87.891 Personal history of nicotine dependence; Z88.2 Allergy status to sulfonamides; Z88.5 Allergy status to narcotic agent
CPT/HCPCS: 36415; 80053; 82550; 82553; 83605; 83880; 84484; 85025; 85610; 85730; 93005; 96374; 99283

== ENCOUNTER 2018-12-09 12:55 | Emergency (ER) | payer MEDICARE, BC ==
--- OUTSIDE RECORDS SUMMARY | 2018-12-09 13:11 | XMS REPORT | Continuity of Care Document ---
:1945 External Reference #:[id number] Author Name Kilo Gonzalez MD Address [facility] [place] [address] Care Team Providers Name Role Phone Tri Taveras MD Care Team Information Public Welfare Worker Unavailable Tir Taveras MD Primary Care Physician Unavailable Payers Date Identification Numbers Payment Provider Subscriber PayID: [id number] Medicare Carmela Ohara [facility] [address] [facility] [place] [address] Policy Number: [id number] [facility] [employer] Carmela Ohara PayID: [id number] [address] [place] [address] Problems Active Problems Provider Date Stented coronary artery Thony Lanza MD Onset: 07/07/2015 Diverticular disease Thony Lanza MD Onset: 07/07/2015 Esophageal dysphagia Kilo Gonzalez MD Onset: 11/21/2018 Family History Date Family Member(s) Observation Comments Children 3 First Sister Pancreatic Cancer Social History Type Date Description Comments Sex Unknown Tobacco Use Start: Unknown End: Unknown Patient is a former smoker Smoking Status Reviewed: 11/21/18 Patient is a former smoker Allergies, Adverse Reactions, Alerts Active Allergies Reaction Severity Comments Date Sulfa Antibiotics 07/07/2015 Morphine 07/07/2015 Medications Active Medications SIG Qnty Indications Ordering Date Provider Protonix 1 by mouth every 90tabs Kilo Rutherford 11/21/[address] ken Gonzalez MD Colyte With Flavor by mouth as 4000ml Kilo Rutherford 11/21/2018 Packs directed MD Carlos 240gm Solution Rec Atorvastatin Calcium take 1 tablet by Unknown 40mg mouth once daily Tablets Losartan Potassium Tri Taveras MD 100mg Tablets Metoprolol Succinate bid Tri Taveras MD ER 25mg Tablets ER 24HR Aspirin Ec 1 by mouth every Unknown 81mg Tablets day DR Leroy 1 by mouth every Unknown 20mg Tablets day Spironolactone 1 by mouth every Unknown 50mg day Tablets Sertraline HCL 1 by mouth every Unknown 100mg day Tablets Aspirin 81 Unknown 81mg Tablets Iron 1 by mouth every Unknown 325(65Fe) mg Tablets other day Amoxicillin 4 tabs at once 1 Unknown 500mg Tablets hour before procedure History Medications Colyte With Flavor by mouth as 4000ml Kilo Gonzalez, 07/08/2015 - Packs directed 11/21/2018 240gm Solution Rec Amlodipine Besylate Dusty Gilbert MD - 11/21/2018 5mg Tablets Sertraline HCL Tri Taveras MD - 50mg 11/21/2018 Tablets Vital Signs Date Vital Result Comment 11/21/2018 11:07am Height 64 inches 5'4" Weight 130.00 lb BP Systolic 158 mmHg BP Diastolic 80 mmHg Heart Rate 77 /min BMI (Body Mass Index) 22.3 kg/m2 07/07/2015 1:58pm Height 64 inches 5'4" Weight 167.00 lb BP Systolic 122 mmHg BP Diastolic 70 mmHg Heart Rate 72 /min BMI (Body Mass Index) 28.7 kg/m2 Results Test Date Facility Test Result H/L Range Note Laboratory test 08/05/2015 [facility] SEE RESULT 1 finding Interface Order BELOW 1 SEE RESULT BELOW Name: CARMELA OHARA Elio : [address]: Thony Lanza MD Acct: [id number] Unit: [id number] AGE: 69 Location: ENDO Re08/05/15 SEX: F Status: REG REF SPEC: [id number] TORRI: 08/05/15-[address] [facility] [address]: Thony Lanza MD REQ: [id number] RECD: 08/05/15 STATUS: ARELIS LARA DR: Tri Taveras MD _ ORDERED: LEVEL IV FINAL DIAGNOSIS Colon, cecum, biopsy: -- Tubular adenoma. -- No high grade dysplasia or malignancy. CLINICAL HISTORY Personal history of colon polyp, history of sigmoid colon resection for diverticulitis POST-OPERATIVE DIAGNOSIS Colonoscopy into terminal ileum, prep good - 2 small cecal polyps removed, anastomosis widely patent, diffuse diverticulosis GROSS DESCRIPTION The specimen is received in formalin labeled, Cecal Polyps, and consists of two west irregular to polypoid soft tissue fragments measuring 0.5 x 0.2 x 0.1 cm and 0.5 cm by up to 0.3 x 0.2 cm, which are submitted entirely in one cassette. Signed (signature on file) Sugar Aparicio MD 11/15 1212 END OF REPORT * ML=Testing performed at Main Lab DEPARTMENT OF PATHOLOGY, [address] [place] [address] Garry Purvis M.D. Director [facility] # [id number] Procedures Date Code Description Status 08/05/2015 84548 Colonscopy+Biopsy Completed 08/03/2015 63240092 Colonoscopy Completed Plan of Treatment Future Appointment(s):01/10/2019 1:30 pm - Kilo Gonzalez MD at [facility]11/21/2018 - Kilo Gonzalez, MDR13.14 Dysphagia, pharyngoesophageal phaseComments:RISKS AND BENEFITS OF THE PROCEDURE WERE DISCUSSED WITH PATIENT. I had a very long discussion with the patient regarding her symptoms of globus. We discussed dysphagia and odynophagia. We discussed the fact that I would like to perform an upper endoscopy for further evaluation. We discussed strictures or rings eosinophilic esophagitis. She will continue with her Protonix
--- NOTE | 2018-12-09 13:45 | ED ---
Lower Extremity - HPI Summary HPI Summary: A 72 y/o F presents to ED s/p fall c/o mid-back pain onset two days ago. Associated sx: RLE pain. Denies abd pain. Patient able to ambulate, she's been using a walker, but with difficulty. She was washing the kitchen window and fell onto the ground, she had been standing on a step stool. She landed on her back. Cholecystectomy last year. She took an oxycodone last night, but no pain medication today. - History of Current Complaint Chief Complaint: EDHipPelvisInjury Stated Complaint: BACK PAIN PER EMS Time Seen by Provider: 12/09/18 13:36 Hx Obtained From: Patient Mechanism Of Injury: Fall From Height Of: - standing + step stool Onset of Pain: Immediate, Prior to Arrival Onset/Duration: Still Present Severity Initially: Severe Severity Currently: Severe Pain Intensity: 8 Pain Scale Used: 0-10 Numeric Timing: Constant Location: Radiates To - mid back radiating to RLE Associated Signs And Symptoms: Positive: Other - pos: RLE pain. Negative: Abdominal Pain Able to Bear Weight: Yes - minimally, and with pain - Allergies/Home Medications Allergies/Adverse Reactions: Allergies Allergy/AdvReac Type Severity Reaction Status Date / Time lisinopril Allergy Coughing Verified 04/24/18 11:39 morphine Allergy Vomiting Verified 04/24/18 11:39 Sulfa (Sulfonamide Allergy Unknown Verified 04/24/18 11:39 Antibiotics) Reaction Details PMH/Surg Hx/FS Hx/Imm Hx Previously Healthy: No Endocrine/Hematology History: Denies: Hx Anticoagulant Therapy, Hx Blood Disorders, Hx Blood Transfusions, Hx Bone Marrow Disease, Hx Diabetes, Hx Systemic Lupus Erythematosus, Hx Sickle Cell Disease, Hx Thyroid Disease, Hx Anemia, Hx Unexplained Bleeding, Other Endocrine/Hematological Disorders Cardiovascular History: Reports: 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 , Hx Angina, Hx Coronary Artery Disease, Hx Hypercholesterolemia, Hx Hypertension - on meds Denies: Hx Angioplasty, Hx Auto Implanted Cardiovert Defib, Hx Cardiac Arrest , Hx Cardiomegaly, Hx Congenital Heart Disease, Hx Congestive Heart Failure, Hx Deep Vein Thrombosis, Hx Embolism, Hx Hypotension, Hx Pacemaker/ICD, Hx Peripheral Vascular Disease, Hx Rheumatic Fever, Hx Syncope, Hx Valvular Heart Disease Comment Only: Other Cardiovascular Problems/Disorders - AORTIC ANEURISM REPAIR Respiratory History: Reports: Hx Seasonal Allergies - current CPAP user, Hx Sleep Apnea - current BiPAP user, Other Respiratory Problems/Disorders - sleep apnea cpap Denies: Hx Asthma, Hx Chronic Bronchitis, Hx Chronic Obstructive Pulmonary Disease (COPD), Hx Cystic Fibrosis, Hx Lung Cancer, Hx Pleural Effusion, Hx Pneumonia, Hx Pulmonary Edema, Hx Pulmonary Embolism GI History: Denies: Hx Cirrhosis, Hx Crohn's Disease, Hx Diverticulosis, Hx Gall Bladder Disease, Hx Gastroesophageal Reflux Disease, Hx Gastrointestinal Bleed, Hx Hiatal Hernia, Hx Irritable Bowel, Hx Jaundice, Hx Obstructive Bowel, Hx Ileostomy, Hx Pyloric Stenosis, Hx Ulcer, Other GI Disorders History: Denies: Hx Acute Renal Failure, Hx Benign Prostatic Hyperplasia, Hx Chronic Renal Failure, Hx Dialysis, Hx Kidney Infection, Hx Kidney Stones, Hx Renal Disease, Other Problems/Disorders Musculoskeletal History: Denies: Hx Arthritis, Hx Back Problems, Hx Bursitis, Hx Congenital Bone Abnormalities, Hx Fibromyalgia, Hx Gout, Hx Orthopedic Injury, Hx Osteoporosis, Hx Scoliosis, Hx Tendonitis, Other Musculoskeletal History Sensory History: Reports: Hx Vision Problem, Hx Hearing Problem Denies: Hx Cataracts, Hx Contacts or Glasses, Hx Eye Injury, Hx Eye Prosthesis, Hx Glaucoma, Hx Legally Blind, Hx Macular Degeneration, Hx Deafness , Hx Hearing Aid, Other Sensory Impairments Opthamlomology History: Reports: Hx Vision Problem Denies: Hx Cataracts, Hx Contacts or Glasses, Hx Eye Injury, Hx Eye Prosthesis, Hx Glaucoma, Hx Legally Blind, Hx Macular Degeneration, Other Sensory Impairments Neurological History: Reports: Hx Headaches, Hx Migraine Denies: Hx Dementia, Hx Developmental Delay, Hx Nerve Disease, Hx Seizures, Hx Spinal Cord Injury, Hx Transient Ischemic Attacks (TIA), Other Neuro Impairments/Disorders Psychiatric History: Reports: Hx Anxiety, Hx Depression Denies: Hx Attention Deficit Hyperactivity Disorder, Hx Eating Disorder, Hx Panic Disorder, Hx Post Traumatic Stress Disorder, Hx Inpatient Treatment, Hx Community Mental Health Tx, Hx Schizophrenia, Hx Bipolar Disorder, Hx Suicide Attempt, Hx of Violent Episodes Against Others, Hx Substance Abuse, Other Psychiatric Issues/Disorders - Surgical History Surgery Procedure, Year, and Place: 1998 [facility]-bowel resection. 1999 [facility]-(left) ankle FX+repair. 1961 tonsils. dental surgeries cardiac surgeries, cardiac aneurysm x 3,isabel. Nephrectomy Hx Anesthesia Reactions: No - Immunization History Date of Tetanus Vaccine: unk Date of Influenza Vaccine: fall 2016 Infectious Disease History: No Infectious Disease History: Denies: Hx Clostridium Difficile, Hx Hepatitis - Hepatitis as a child, Hx Human Immunodeficiency Virus (HIV), Hx of Known/Suspected MRSA, Hx Shingles, Hx Tuberculosis, Hx Known/Suspected VRE, Hx Known/Suspected VRSA, History Other Infectious Disease, Traveled Outside the [place] in Last 30 Days - Family History Known Family History: Positive: Hypertension - Social History Occupation: Retired Lives: Alone Alcohol Use: Daily Alcohol Amount: glass of wine at night Hx Substance Use: Yes Substance Use Type: Reports: None Hx Tobacco Use: Yes Smoking Status (MU): Former Smoker Type: Cigarettes Amount Used/How Often: 1 or 2 cigarettes/day Have You Smoked in the Last Year: No Review of Systems Negative: Abdominal Pain Musculoskeletal: Other - pos: mid back pain radiating to RLE All Other Systems Reviewed And Are Negative: Yes Physical Exam - Summary Physical Exam Summary: Appearance: The patient is well-nourished in no acute distress and in no acute pain. Skin: The skin is warm and dry and skin color reflects adequate perfusion. HEENT: The head is normocephalic and atraumatic. The pupils are equal and reactive. The conjunctivae are clear and without drainage. Nares are patent and without drainage. Mouth reveals moist mucous membranes and the throat is without erythema and exudate. The external ears are intact. The ear canals are patent and without drainage. The tympanic membranes are intact. Neck: the neck is supple with full range of motion and non-tender. There are no carotid bruits. There is no neck vein distension. Respiratory: Chest is non-tender. Lungs are clear to auscultation and breath sounds are symmetrical and equal. Cardiovascular: Heart is regular rate and rhythm. There is no murmur or rub auscultated. There is no peripheral edema and pulses are symmetrical and equal. Abdomen: The abdomen is soft and non-tender. There are normal bowel sounds heard in all four quadrants and there is no organomegaly palpated. Musculoskeletal: There is good capillary refill. There is no peripheral edema or calf tenderness elicited. Tender to compression of pelvis on R; tender to ROM of R hip. Neurological: Patient is alert and oriented to person, place and time. The patient has symmetrical motor strength in all four extremities. Cranial nerves are grossly intact. Deep tendon reflexes are symmetrical and equal in all four extremities. Psychiatric: The patient has an appropriate affect and does not exhibit any anxiety or depression. Triage Information Reviewed: Yes Vital Signs On Initial Exam: Initial Vitals Temp Pulse Resp BP Pulse Ox 97.9 F 62 18 155/61 99 12/09/18 13:04 12/09/18 13:04 12/09/18 13:04 12/09/18 13:04 12/09/18 13:04 Vital Signs Reviewed: Yes Diagnostics - Vital Signs Vital Signs Temp Pulse Resp BP Pulse Ox 12/09/18 13:08 74 99 12/09/18 13:07 78 155/61 98 12/09/18 13:04 97.9 F 62 18 155/61 99 - Laboratory Lab Statement: Any lab studies that have been ordered have been reviewed, and results considered in the medical decision making process. - Radiology R HIP/PELVIS XR Radiology Interpretation Completed By: Radiologist Summary of Radiographic Findings: IMPRESSION: POSSIBLE NONDISPLACED FRACTURE OF THE RIGHT INFERIOR PUBIC RAMUS. ED provider has reviewed this report. Re-Evaluation - Re-Evaluation 1 Re-Evaluation Time: 15:31 Change: Improved Comment: Discussing XR results with patient. Lower Extremity Course/Dx - Course Course Of Treatment: Ms. Chavarria apparently fell on Monday while trying to wash windows. Ever since that time she's had a great deal of difficulty ambulating even with a walker because of pain in her right hip and to some degree in the middle of her back. She was very tender to evaluation of her right hip and to compression of her pelvis. Her back was minorly tender. She was nontoxic in appearance is stable vitals. She was found to have an inferior ramus pelvic fracture that is nondisplaced. We will treat her symptomatically. She has used Percocet successfully at home in the past and tolerated it well here in the emergency department and I will prescribe that. - Diagnoses Provider Diagnoses: Pelvic fracture Discharge - Sign-Out/Discharge Documenting (check all that apply): Patient Departure - D/C Patient Received Moderate/Deep Sedation with Procedure: No - Discharge Plan Condition: Stable Disposition: HOME Prescriptions: oxyCODONE/Acetamin 5/325 MG* [Percocet 5/325 TAB*] 1 tab PO Q6H PRN #30 tab MDD 4 PRN Reason: Pain Patient Education Materials: Oxycodone/Acetaminophen (By mouth), Pelvic Fracture (ED) Referrals: Tri Taveras MD [Primary Care Provider] - 1 Week Additional Instructions: Please return to the ED if you experience new or worsening symptoms. Follow up with your primary care provider this week. - Billing Disposition and Condition Condition: STABLE Disposition: Home - Attestation Statements Document Initiated by Chellyibe: Yes Documenting Scribe: Tami Morfin Provider For Whom Chellyibchastity is Documenting (Include Credential): Dr. Alber Jesus MD Scribe Attestation: Tami Mitchell, scribed for Dr. Alber Jesus MD on 12/09/18 at 1836. Scribe Documentation Reviewed: Yes Provider Attestation: The documentation as recorded by the Tami mendiola accurately reflects the service I personally performed and the decisions made by me, Dr. Alber Jesus MD Status of Scribe Document: Viewed
[2018-12-09] MEDS ORDERED: oxyCODONE/Acetamin 5/325 MG* TAB PO ONE (14:11)
[2018-12-09 15:39] VITALS: BP 162/68
== END 2018-12-09 15:56 | disposition home or self-care (01) ==
LOC: ED 12:55
DX: S32.9XXA Fracture of unspecified parts of lumbosacral spine and pelvis, initial encounter for closed fracture (principal); W19.XXXA Unspecified fall, initial encounter; Z87.891 Personal history of nicotine dependence; Z88.5 Allergy status to narcotic agent
CPT/HCPCS: 99283; A9270-GY